=== PATIENT | female | born 1995 | race Caucasian/White ===

== ENCOUNTER 2017-07-19 21:03 | Emergency (ER) | payer MEDICAID ==
[~2017-07-19] VITALS: Ht 154.9 cm; Wt 77.1 kg
[~2017-07-19 21:03] MED LIST: BACTRIM DS 8001 TAB PO; BACTROBAN2% TP; BACTROBAN23 TP; BENADRYL25 M1 PO; BIRTH CONTROL PO; CIPRO 500MG TA500 MG PO; CYCLOBENZ5 MG PO; LESSINA 28 0.021 TAB PO; LORTAB 5/500 501 TAB PO; MEDROL 4MG. DOSE4 MG PO; NAPROSYN500 M1 PO; ROBAXIN-750750 MG PO; SEPTRA DS 800 M1 TAB PO; SINGULAIR10 MG PO; VISTARIL50 MG PO; ZITHROMAX Z-PA250 M1 PO; ZOFRAN ODT4 MG PO
--- NOTE | 2017-07-19 21:22 | Emergency Room Report ---
History of Present Illness Time Seen by [id number] Presenting Problem in Triage Pt arrived:Walked Presenting Problem:CHASING DOG AND FELL IN ROAD.STATES HERE FOR R WRIST.ABLE TO MOVE FINGERS BUT STATES HURTS WITH MOVEMANT. 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 N Clinical Suspician of Infection? N Mental Status: 1 - Regular (Normal Baseline) Sepsis Risk:Low Sepsis Risk Have you (or family members/close friends) recently traveled outside the [place]? N If Yes, where/when: Have you had exposure to infectious disease within the past month? N TB? Other? Specify: Source patient, RN notes reviewed, family, old records Exam Limitations no limitations Comment pt with trip injury rt wrist and abrasion lt knee - pt with no other c/o Cardiac Chest Pain Chest pain indicative of cardiac No Timing/Duration this evening Severity moderate ALLERGIES Coded Allergies: Penicillins (Intermediate, I-HIVES 09/01/15) History Medical History General CAD? No Angina: No [place]: No Hypertension? No Hyperlipidemia? No CHF? No DVT? No PE? No COPD? No Asthma? Yes Anemia? No GERD? No Gastric ulcers? No GI Bleed? No Hernia? No Thyroid Problems? No Hypothyroidism? No CVA? No Seizures? No Diabetes? No Insulin Dependent: No Insulin Pump: No Home FSBS? No Renal Insuffiency? No End Stage Renal Disease? No UTI? No Stones? No BPH? No GB Disease: No Nephritic Syndrome? No Asplenia? No Hepatitis? No Sickle Cell Disease? No Arthritis? No Migraines? No Cataracts? No Glaucoma? No MRSA? Yes HIV? No TB? No Anxiety? No Depression? No Cancer? No More? 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 Respiratory denies cough, denies wheezing Cardiovascular denies chest pain, denies syncope Gastrointestinal denies abdominal pain, denies diarrhea, denies vomiting Genitourinary denies: dysuria, frequency, hesitancy, hematuria. Musculoskeletal see HPI, denies back pain, joint pain, joint swelling, denies neck pain Skin see HPI, denies rash, other Psychiatric/Neurological denies headache, denies seizure Physical Exam Vital Signs Vital Signs Date Time Temp Pulse Resp B/P Pulse O2 O2 Flow FiO2 Ox Delivery Rate 07/19 2107 98.7 88 18 135/82 99 - WBC >12,000 or <4,000 or 10% bands? 2 or more SIRS Criteria Met? B/P:135/82 MAP:99 Creatinine >2.0? UA output<0.5ml/kg/hr for 2 hrs? Platelet count >100,000? Lactate >2.0mmol/1? INR >1.2 or PTT > than 60 sec? Evidence of Organ Dysfunction? Provider documented clinical suspician of infection? N Sepsis Criteria Count: 0 Sepsis Risk: Low Sepsis Risk General Appearance no apparent distress Eye Exam - bilateral eye PERRL, bilateral eye EOMI Ear, Nose, Throat normal ENT inspection Neck non-tender Respiratory Status No: respiratory distress. 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 No Results/Orders Orders Procedure Date/time Status URINE 07/19 2154 Complete WRIST-3 VIEWS-RT 07/19 2122 Active XRAY/CT/US XRAY/CT/US XRAY wrist XR interpretation by reviewed by me Xray Results abnormal (ulnar styloid) Departure Departure Time of Disposition 2147 Disposition DC Home or Self Care(routine) Clinical Impression Primary Impression: Fracture of right ulnar styloid Qualifiers: Encounter type: initial encounter Fracture type: closed Fracture alignment: nondisplaced Qualified Code: S52.614A - Nondisplaced fracture of right ulna styloid process, initial encounter for closed fracture Secondary Impressions: Abrasion Condition STABLE Patient Instructions DI for Wrist Fracture Additional Instructions wear splint and see pcp for follow up Discharge Counseling Counseled pt/family regarding diagnosis, test results, medications/RX, follow up needs ED Critical Care Critical Care No at [id number]
--- NOTE | 2017-07-19 21:22 | Emergency Room Report ---
History of Present Illness Time Seen by [id number] Presenting Problem in Triage Pt arrived:Walked Presenting Problem:CHASING DOG AND FELL IN ROAD.STATES HERE FOR R WRIST.ABLE TO MOVE FINGERS BUT STATES HURTS WITH MOVEMANT. 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 N Clinical Suspician of Infection? N Mental Status: 1 - Regular (Normal Baseline) Sepsis Risk:Low Sepsis Risk Have you (or family members/close friends) recently traveled outside the [place]? N If Yes, where/when: Have you had exposure to infectious disease within the past month? N TB? Other? Specify: Source patient, RN notes reviewed, family, old records Exam Limitations no limitations Comment pt with trip injury rt wrist and abrasion lt knee - pt with no other c/o Cardiac Chest Pain Chest pain indicative of cardiac No Timing/Duration this evening Severity moderate ALLERGIES Coded Allergies: Penicillins (Intermediate, I-HIVES 09/01/15) History Medical History General CAD? No Angina: No [place]: No Hypertension? No Hyperlipidemia? No CHF? No DVT? No PE? No COPD? No Asthma? Yes Anemia? No GERD? No Gastric ulcers? No GI Bleed? No Hernia? No Thyroid Problems? No Hypothyroidism? No CVA? No Seizures? No Diabetes? No Insulin Dependent: No Insulin Pump: No Home FSBS? No Renal Insuffiency? No End Stage Renal Disease? No UTI? No Stones? No BPH? No GB Disease: No Nephritic Syndrome? No Asplenia? No Hepatitis? No Sickle Cell Disease? No Arthritis? No Migraines? No Cataracts? No Glaucoma? No MRSA? Yes HIV? No TB? No Anxiety? No Depression? No Cancer? No More? 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 Respiratory denies cough, denies wheezing Cardiovascular denies chest pain, denies syncope Gastrointestinal denies abdominal pain, denies diarrhea, denies vomiting Genitourinary denies: dysuria, frequency, hesitancy, hematuria. Musculoskeletal see HPI, denies back pain, joint pain, joint swelling, denies neck pain Skin see HPI, denies rash, other Psychiatric/Neurological denies headache, denies seizure Physical Exam Vital Signs Vital Signs Date Time Temp Pulse Resp B/P Pulse O2 O2 Flow FiO2 Ox Delivery Rate 07/19 2107 98.7 88 18 135/82 99 - WBC >12,000 or <4,000 or 10% bands? 2 or more SIRS Criteria Met? B/P:135/82 MAP:99 Creatinine >2.0? UA output<0.5ml/kg/hr for 2 hrs? Platelet count >100,000? Lactate >2.0mmol/1? INR >1.2 or PTT > than 60 sec? Evidence of Organ Dysfunction? Provider documented clinical suspician of infection? N Sepsis Criteria Count: 0 Sepsis Risk: Low Sepsis Risk General Appearance no apparent distress Eye Exam - bilateral eye PERRL, bilateral eye EOMI Ear, Nose, Throat normal ENT inspection Neck non-tender Respiratory Status No: respiratory distress. 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 No Results/Orders Orders Procedure Date/time Status URINE 07/19 2154 Complete WRIST-3 VIEWS-RT 07/19 2122 Active XRAY/CT/US XRAY/CT/US XRAY wrist XR interpretation by reviewed by me Xray Results abnormal (ulnar styloid) Departure Departure Time of Disposition 2147 Disposition DC Home or Self Care(routine) Clinical Impression Primary Impression: Fracture of right ulnar styloid Qualifiers: Encounter type: initial encounter Fracture type: closed Fracture alignment: nondisplaced Qualified Code: S52.614A - Nondisplaced fracture of right ulna styloid process, initial encounter for closed fracture Secondary Impressions: Abrasion Condition STABLE Patient Instructions DI for Wrist Fracture Additional Instructions wear splint and see pcp for follow up Discharge Counseling Counseled pt/family regarding diagnosis, test results, medications/RX, follow up needs ED Critical Care Critical Care No at [id number]
[2017-07-19 22:23] VITALS: BP 113/71
--- OUTSIDE RECORDS SUMMARY | 2017-07-20 06:27 | External Medical Summary Rpt | CCD ---
Author Author , [facility] Organization [facility] Address Unknown Phone Care Team Providers Care Cat Operator Name Role Phone A Mk ESCOTO MD PSC, Elaine Unavailable Unavailable Mk ESCOTO MD PSC BEAVEN, BEAVEN Unavailable Unavailable QUINTERO ALL, QUINTERO ALL Unavailable Unavailable VIERA JR, J V, Unavailable Unavailable VIERA JR, J V AVENDANO SHERRELL, AVENDANO Unavailable Unavailable SHERRELL [facility], Unavailable Unavailable [facility] CARMEN VIELKA, Unavailable Unavailable CARMEN VIELKA CARMEN VIELKA, Unavailable Unavailable CARMEN VIELKA TIAN MAT, TIAN Unavailable Unavailable MAT [facility] [place]available [place], [facility] [place] [facility] [place] [facility] [place] [facility], RASHEEDA Unavailable Unavailable SHA [facility], RAS[facility] Unavailable Unavailable [facility] Unavailable Unavailable [facility], [facility] Unavailable Unavailable ISAAC DORINA, ISAAC Unavailable Unavailable DORINA [facility], [facility] Un[facility], [facility] Unavailable Unavailable [facility], [facility] HILARY RHO, HILARY Unavailable Unavailable RHO [facility], Unavailable Unavailable [facility] Un[facility], [facility] Unavailable [facility]available [facility]PITAL P, [facility] P RODRIGUEZ MALA, RODRIGUEZ MALA Unavailable Unavailable RODRIGUEZ MALA, RODRIGUEZ MALA Unavailable Unavailable [facility], Unavailable Unavailable [facility] KILPELA JEA, KILPELA Unavailable Unavailable JEA KILPELA JEA, KILPELA Unavailable Unavailable JEA KOSTELIC, KOSTELIC Unavailable Unavailable [facility], Unavailable Unavailable [facility], Unavailable Unavailable [facility] ARTIE PETER, Unavailable Unavailable ARTIE PETER ARTIE PETER, Unavailable Unavailable ARTIE PETER MECCARIELLO, Unavailable Unavailable MECCARIELLO EMILIE RODRIGUEZ, Unavailable Unavailable EMILIE RODRIGUEZ [facility] Unavailable Unavailable [facility] Unavailable Unavailable O' REEL SUMAYA, O' REEL Unavailable Unavailable SUMAYA [facility], [facility], [facility] Unavailable Unavailable [facility] Unavailable Unavailable SCIFRES ANG, SCIFRES Unavailable Unavailable ANG SCIFRES ANG, SCIFRES Unavailable Unavailable ANG JIMMIE ALBRIGHT, Unavailable Unavailable JIMMIE ALBRIGHT JOHN T, SMALL, Unavailable Unavailable [facility] Un[facility], [facility] Unavailable Unavailable EM[facility]ENCY SERVI, [facility] Unavailable Unavailable H[facility]PITALS, [facility] Unavailable Unavailable DEPT [facility] Unavailable Unavailable DEPT [facility], [facility] YUMI MIMS, Unavailable Unavailable YUMI MIMS, JEVON Henry Unavailable Unavailable Elaine ESCOTO, JEVON, Unavailable Unavailable Elaine C Purpose Continuity of Care Document - 10-30-2007 through 2016 Problems Code Diagnosis DOS Provider Status J45.909 UNSPECIFIED 04-03-2017 ASTHMA, UNCOMPLICAT ED L55.9 SUNBURN, 04-03-2017 UNSPECIFIED R22.0 LOCALIZED 04-03-2017 SWELLING, MASS AND LUMP, HEAD R60.0 LOCALIZED 04-03-2017 EDEMA Z88.0 ALLERGY 04-03-2017 STATUS TO PENIC[place] [id number] UNSPECIFIED 03-25-2017 [facility] UNCOMPLICAT HOSPITA ED L559 SUNBURN 03-25-2017 [facility] UNSPECIFIED N EMERGENCY SERVI R220 LOCALIZED 03-25-2017 [facility] SWELLING N EMERGENCY MASS AND SERVI LUMP HEAD R600 LOCALIZED 03-25-2017 [facility]DEMA COMMUNTIY HOSPITA Z880 ALLERGY 03-25-2017 [facility] STATUS TO COMMUNTIY [facility] HOSPITA R05 COUGH 02-24-2017 R06.02 SHORTNESS 02-24-2017 OF BREATH R09.1 PLEURISY 02-24-2017 R05 COUGH 02-19-2017 [facility] CHEST PAIN 02-19-2017 [facility]PECIFIED [facility] [place] [facility] R091 PLEURISY 02-19-2017 [facility] N EMERGENCY PHYS R509 FEVER 02-19-2017 [facility] [place] U[facility]PEC[facility]IED [facility]OLOGY E22.1 HYPERPROLAC 01-02-2017 [place] E221 HYPERPROLAC 12-31-2016 [facility] [place] ON LICENSE OF [facility] HOSPITA N926 IRREGULAR 12-19-2016 [facility] UNSPECIFIED R1031 RIGHT LOWER 12-13-2016 [facility] H[facility] Z3202 ENCOUNTER 12-13-2016 [facility] TEST RESULT NEGATIVE Z789 OTHER 12-13-2016 [place] [facility] STATUS [id number] PAIN IN 03-22-2016 [facility] LEFT WRIST N EMERGENCY PHYS Z720 TOBACCO USE 03-22-2016 [facility] HOSPITA H5213 MYOPIA 11-28-2015 RODRIGUEZ MALA BILATERAL [id number] PAIN IN 11-06-2015 [facility] [place] RIGHT HAND RADIOLOG[facility] [id number] CONTUSION 11-06-2015 [facility] RT MIDDLE N EMERGENCY FINGER W/O SERV DAMAGE NAIL INIT K562ULD STRIKING 11-06-2015 [facility] AGAINST/STR N EMERGENCY UCK OTH SERV OBJECTS INITIAL ENC R21 RASH AND 10-04-2015 [facility] OTHER [facility]YSICIANS, NONSPECIFIC PLLC SKIN ERUPTION J069 ACUTE UPPER 09-01-2015 [facility] HOSP RESPIRATORY INC INFECTION UNSPECIFIED R0989 OTH SPEC SX 09-01-2015 [place] & SIGNS MEDICAL INVLV THE IMAGING ASS CIRC & RESP SYS R1110 VOMITING 09-01-2015 [facility]PEC[facility] MEDICAL IMAGING ASS 83408 ASTHMA, 12-19-2014 [place]PEC[facility]IED [facility] , INC UNSPECIFIED STATUS 90522 SPRAIN AND 12-19-2014 [facility] P GEAL OF HAND 9595 INJURY 12-19-2014 [place] OTHER AND MEDICAL UNSPECIFIED IMAGING ASS FINGER E8494 PLACE [facility] 12-19-2014 [facility] RECREATION AND SPORT E9170 STRIKE 12-19-2014 [facility] P SPORTS W/O SUBSQT FALL V140 PERSONAL 12-19-2014 [facility] HISTORY OF [facility] ALLERGY TO [facility] P PENICILLIN 6264 IRREGULAR 12-06-2014 [facility] MENSTRUAL PHYSICIANS CYCLE GROUP V2509 OTH GENERAL 12-06-2014 [facility] PHYSIC[facility]ANS CNSL&ADVICE GROUP CONTRACEPT MANAGEMENT V2549 SURVEILLANC 12-06-2014 [facility] E OT PREV PHYSICIANS PRSC GROUP CONTRACEPT METHOD 1110 PITYRIASIS 10-11-2014 A Mk SINCLAIR MD PSC 684 IMPETIGO 10-11-2014 A Mk ESCOTO MD PSC V259 UNSPECIFIED 09-21-2014 [facility] PHYSICIANS CONTRACEPTI GROUP VE MANAGEMENT 7840 HEADACHE 06-29-2014 [facility] N EMERGENCY PHYS 5758 OTHER 01-03-2014 CAR[facility] SPECIFIED VIELKA DISORDER OF GALLBLADDER 41658 ABDOMINAL 01-03-2014 [facility] PAIN RIGHT MEM [facility]OS[facility] UPPER INC QUADRANT 5589 OTH&UNSPEC 12-30-2013 [facility] VIRGIINA NONINFECTIO US GASTROENTER ITIS&COLITI S 5699 UNSPECIFIED 12-30-2013 CARMEN DISORDER VIELKA OF INTESTINE 5779 UNSPECIFIED 12-30-2013 CARMEN DISEASE OF VIELKA PANCREAS 6202 OTHER AND 12-30-2013 [facility]MEN UNSPECIFIED VIELKA OVARIAN CYST 28082 ABDOMINAL 12-30-2013 CARMEN PAIN, VIELKA UNSPECIFIED SITE 64079 OTHER 12-13-2013 [facility] SPECIFIED TMJ DISORDERS V2501 GENERAL 11-16-2013 [facility] PRESCRIPT[facility] DEPT N ORAL NESSA CONTRACEPTS V2689 OTHER 11-16-2013 [facility] SPECIFIED DISTRICT PROCREATIVE [facility] DEPT MANAGEMENT NESSA 4660 ACUTE 12-01-2012 [facility] BRONCHITIS 96377 ACUTE 12-01-2012 [place] BRONCHOSPAS M 7264 ENTHESOPATH 09-18-2012 [place] Y OF WRIST AND CARPUS 4619 ACUTE 08-21-2012 KILPELA JEA SINUSITIS, UNSPECIFIED V741 SCREENING 06-23-2012 [facility] EXAMINATION HIGH FOR SCHOOL HEAL PULMONARY TUBERCULOSI S 2382 NEOPLASM OF 04-14-2012 [facility] BEHAVIOR OF INC SKIN 95106 GANGLION OF 04-14-2012 [place] TENDON SHEATH 7822 LOCALIZED 04-14-2012 CARMEN SUPERFICIAL VIELKA SWELLING MASS OR LUMP 19572 GENERALIZED 02-13-2012 [place] PAIN [facility] 05443 UNSPECIFIED 02-13-2012 [place] SITE OF ANKLE SPRAIN AND STRAIN 63778 SPRAIN AND 02-13-2012 [place] STRAIN OF UNSPECIFIED SITE OF FOOT 9599 INJURY 02-13-2012 [place] OTHER AND MEDICAL UNSPECIFIED IMAGING ASS UNSPECIFIED SITE 7821 RASH AND 11-28-2011 [facility] OTHER NONSPECIFIC SKIN ERUPTION 7847 EPISTAXIS 11-28-2011 [facility] 4659 ACUTE URIS 11-11-2011 [place] OF UNSPECIFIED SITE V720 EXAMINATION 10-03-2011 SCIFRES ANG OF EYES AND VISION 7862 COUGH 08-21-2011 [facility] 5110 PLEURISY 08-20-2011 [facility] WITHOUT [facility] MENTION INC EFFUS/CURRE NT TB 4778 ALLERGIC 05-08-2011 ARTIE RHINITIS PETER DUE TO OTHER ALLERGEN 81037 EXTRINSIC 05-08-2011 [facility] ASTHMA, MEM HOS[facility] UNSPECIFIED INC 6931 DERMATITIS 05-08-2011 [facility] DUE TO FOOD MEM HOS[facility] TAKEN INC INTERNALLY 4770 ALLERGIC 05-07-2011 ARTIE RHINITIS PETER DUE TO POLLEN 4772 ALLERGIC 05-07-2011 ARTIE RHINITIS PETER DUE TO ANIMAL HAIR AND DANDER 4780 HYPERTROPHY 05-07-2011 ARTIE OF NASAL PETER TURBINATES V727 DIAGNOSTIC 05-07-2011 ARTIE SKIN AND PETER SENSITIZATI ON TESTS 2449 UNSPECIFIED 03-27-2011 [facility] HYPOTHYROID ISM 15562 OTHER SIGN 03-27-2011 A Mk ESCOTO AND SYMPTOM PSC IN BREAST 7831 ABNORMAL 03-27-2011 [facility] [place] INC 6929 CONTACT 03-12-2011 A Mk ESCOTO DERMATITIS& PSC OTHER ECZEMA DUE UNSPEC CAUSE 50847 CONTACT AND 01-19-2010 VIERA ALLERGIC JR, J V DERMATITIS OF EYELID 462 ACUTE 01-16-2010 VIERA PHARYNGITIS JR, J V 4720 CHRONIC 01-16-2010 VIERA RHINITIS JR, J V 4871 INFLUENZA 07-28-2009 VIERA WITH OTHER JR, J V RESPIRATORY MANIFESTATI ONS 12878 FEVER 07-28-2009 VIERA UNSPECIFIED JR, J V 7841 THROAT PAIN 07-25-2009 [facility] 4739 UNSPECIFIED 07-05-2009 VIERA SINUSITIS JR, J V 3670 HYPERMETROP 06-09-2009 RAFAEL IA VISION 34962 OTHER 05-09-2009 VIERA ABNORMAL JR, J V GLUCOSE 6111 HYPERTROPHY 04-29-2009 [facility] OF BREAST Aravind RAMIREZ V V163 FAMILY 04-29-2009 [facility] HISTORY OF Aravind RAMIREZ V MALIGNANT NEOPLASM OF BREAST 490 BRONCHITIS 03-01-2009 [facility] NOT Aravind RAMIREZ V SPECIFIED ACUTE OR CHRONIC 8921 OPEN WOUND 08-14-2008 [place] OF FOOT MEDICAL EXCEPT TOE [facility] COMPLICATED 8931 OPEN WOUND 08-14-2008 MAS OF TOE, ZALORA E8490 PLACE OF 06-27-2008 [place] OCCURRENCE, [facility]ICAL [facility] E927 OVEREXERTIO 06-27-2008 [place] N&STRENUOUS MEDICAL &REPETITIVE [facility] MVMNTS/LOAD S V700 ROUTINE 05-09-2008 [facility] GENERAL Aravind RAMIREZ V MEDICAL EXAM@HEALTH CARE FACL 7881 DYSURIA 10-30-2007 Aravind VIERA JR, V Allergies, Adverse Reactions, Alerts Clinical Alert Notifications Alert Asthma: history of ED visit in the last 365 days Asthma: no influenza vaccine in the last 365 days Asthma: non-ICS non-compliance with ED/hospitalization Medications Na ND Rx Da Fi Fi Am Da Di Ph RX Ph St me C No te ll ll ou ys ag ar # ys at rm s nt no ma ic us Or Da si cy ia de te s n re d ET 51 06 07 14 7 00 CV Ac OD 67 -2 -2 .0 00 S ti OL 24 0- 1- 00 01 PH ve AC 01 20 20 36 AR 80 17 17 07 MA 40 1 78 CY 0 MG #0 23 TA 32 BL ET GEORGE 00 06 07 3. 21 00 CV Ac LA 37 -2 -2 00 00 S ti NE 83 0- 1- 0 01 PH ve 34 20 20 32 AR PA 05 17 17 23 MA TC 3 00 CY H #0 23 32 AL 00 05 06 10 5 00 CV Ac ED 14 -1 -1 .0 00 S ti NI 39 7- 6- 00 01 PH ve SO 73 20 20 34 AR NE 80 17 17 71 MA 5 88 CY 20 #0 MG 23 32 TA BL ET CO 58 05 06 12 2 00 CV Ac DE 65 -1 -1 0. 00 S ti IN 70 7- 6- 00 01 PH ve E- 50 20 20 0 34 AR 01 17 17 71 MA AI 6 89 CY FE N #0 10 23 -1 32 00 MG /5 ML MO 00 05 06 30 30 00 CV Ac NT 09 -1 -1 .0 00 S ti EL 37 7- 6- 00 01 PH ve UK 42 20 20 34 AR 69 17 17 71 MA T 8 90 CY SO D #0 10 23 32 MG TA BL ET VE 00 05 06 18 30 00 CV Ac NT 17 -1 -1 .0 00 S ti OL 30 7- 6- 00 01 PH ve IN 68 20 20 34 AR 22 17 17 71 MA HF 0 91 CY A 90 #0 23 MC 32 G IN CALDWELL LE R GEORGE 00 03 04 3. 21 00 CV Ac LA 37 -2 -2 00 00 S ti NE 83 3- 8- 0 01 PH ve 34 20 20 32 AR PA 05 17 17 23 MA TC 3 00 CY H #0 23 32 PE 00 08 09 1 60 1 EA 23 MA Ac RM 47 -0 -[address] 51 SH ti ET 20 2- 6- 00 SI 04 BU ve HR 24 20 20 DE RN IN 26 11 11 0 PH AM 5% AR Y MA B CR CY EA M OF CY NT HI AN A TR 00 08 08 6 80 3 EA 23 MA Ac IA 16 -0 -[address] 51 SH ti MC 80 2- 3- 00 SI 11 BU ve IN 00 20 20 DE RN OL 68 11 11 ON 0 PH AM E AR Y 0. MA B 1% CY OI OF NT ME CY NT NT HI AN A CE 45 08 08 6 30 30 EA 23 MA Ac TI 80 -0 -[address] 51 SH ti RI 20 2- 3- 00 SI 10 BU ve ZI 91 20 20 DE RN NE 98 11 11 7 PH AM HC AR Y L MA B 10 CY MG OF TA CY BL NT ET HI AN A 00 08 08 6 30 30 EA 23 MA Ac 00 -0 -[address] 51 SH ti 60 2- 3- 00 SI 09 BU ve 11 20 20 DE RN 73 11 11 1 PH AM AR Y MA B CY OF CY NT HI AN A 59 08 08 3 8. 20 EA 23 MA Ac 31 -0 -[address] 51 SH ti 00 2- 3- 0 SI 08 BU ve 57 20 20 DE RN 92 11 11 0 PH AM AR Y MA B CY OF CY NT HI AN A 00 08 08 6 0. 30 EA 23 MA Ac MA 08 -0 -[address] 51 SH ti NE 51 2- 3- 5 SI 07 BU ve X 46 20 20 DE RN TW 10 11 11 IS 2 PH AM TH AR Y AL MA B ER CY 11 OF 0 MC CY G NT #3 HI 0 AN A 00 08 08 6 30 30 EA 23 CO Ac 00 -0 -[address] 51 MM ti 60 2- 3- 00 SI 09 UN ve 11 20 20 DE IT 73 11 11 Y 1 PH AL AR LE MA RG CY Y & OF TH CY MA NT HI PS AN C A 59 08 08 3 8. 20 EA 23 CO Ac 31 -0 -[address] 51 MM ti 00 2- 3- 0 SI 08 UN ve 57 20 20 DE IT 92 11 11 Y 0 PH AL AR LE MA RG CY Y & OF TH CY MA NT HI PS AN C A PE 00 08 08 1 60 1 EA 23 MA Ac RM 47 -0 -[address] 51 SH ti ET 20 2- 2- 00 SI 04 BU ve HR 24 20 20 DE RN IN 26 11 11 0 PH AM 5% AR Y MA B CR CY EA M OF CY NT HI AN A ME 00 06 06 0 21 6 EA 22 MO Ac TH 78 -0 -[address] 83 SE ti YL 15 7- 7- 00 SI 65 S ve AL [address] ED 20 11 11 EP NI 7 PH HE SO AR N LO MA A NE CY 4 OF MG CY DO NT SE HI PK AN A CE 45 06 06 5 30 30 EA 22 MO Ac TI 80 -0 -[address] 83 SE ti RI 20 7- 7- 00 SI 64 S ve ZI [address] NE 98 11 11 EP 7 PH HE HC AR N L MA A 10 CY MG OF TA CY BL NT ET HI AN A 00 04 04 1 30 30 EA 17 CA Ac 00 -1 -[address] ti 60 3- 3- 00 SI 59 IL ve 11 20 20 DE LO 73 10 10 1 PH JR AR J MA V CY OF CY NT HI AN A VE 00 04 04 1 18 22 EA 17 CA Ac NT 17 -1 -[address] ti OL 30 3- 3- 00 SI 58 IL ve IN 68 20 20 DE LO 22 10 10 HF 0 PH JR A AR J 90 MA V CY MC G OF IN CALDWELL CY LE NT R HI AN A ME 00 12 12 00 21 6 EA 15 SO Ac TH 78 -1 -[address] 61 KA ti YL 15 7- 1- 00 SI 93 N ve AL 02 20 20 DE BA ED 20 09 09 BA NI 7 PH TU SO AR ND LO MA E NE CY O 4 OF MG CY NT DO HI SE AN PK A BA 00 12 12 00 12 3 EA 15 SO Ac NO 90 -1 -[address] 61 KA ti PH 45 7- 1- 00 SI 94 N ve EN 30 20 20 DE BA 66 09 09 BA 25 0 PH TU AR ND MG MA E CY O CA PS OF UL CY E NT HI AN A 66 10 11 00 90 5 EA 14 CA Ac 99 -2 -[address] ti 20 3- 5- 00 SI 54 IL ve 22 20 20 DE LO 00 09 09 4 PH JR AR J MA V CY OF CY NT HI AN A 00 09 10 00 30 30 EA 14 CA Ac 09 -3 -[address] ti 51 0- 8- 00 SI 50 IL ve 20 20 20 DE LO 00 09 09 6 PH JR AR J MA V CY OF CY NT HI AN A NA 00 08 08 00 17 17 EA 13 CA Ac SO 08 -0 -[address] ti NE 51 4- 3- 00 SI 87 IL ve X 28 20 20 DE LO 50 80 09 09 1 PH JR MC AR J G MA V NA CY SA L OF SP CY RA NT Y HI AN A LE 00 08 08 00 30 30 EA 13 CA Ac VO 37 -0 -[address] ti TH 81 4- 3- 00 SI 86 IL ve YR 80 20 20 DE LO OX 30 09 09 IN 1 PH JR E AR J 50 MA V CY MC G OF TA CY BL NT ET HI AN A 00 05 06 00 3. 3 EA 12 CA Ac 09 -2 -[address] ti 37 7- 4- 0 SI 86 IL ve 16 20 20 DE LO 93 09 09 3 PH JR AR J MA V CY OF CY NT HI AN A 00 05 06 00 30 30 EA 12 CA Ac 00 -2 -[address] ti 60 7- 4- 00 SI 85 IL ve 11 20 20 DE LO 73 09 09 1 PH JR AR J MA V CY OF CY NT HI AN A 00 02 02 00 3. 3 EA 11 CA Ac 09 -1 -[address] ti 37 0- 6- 0 SI 54 IL ve 16 20 20 DE LO 93 09 09 3 PH JR AR J MA V CY OF CY NT HI AN A 66 02 02 00 90 5 EA 11 CA Ac 99 -1 -[address] ti 20 0- 6- 00 SI 56 IL ve 22 20 20 DE LO 00 09 09 4 PH JR AR J MA V CY OF CY NT HI AN A 59 02 02 00 8. 17 EA 11 CA Ac 31 -1 -[address] ti 00 0- 6- 0 SI 57 IL ve 57 20 20 DE LO 92 09 09 0 PH JR AR J MA V CY OF CY NT HI AN A 00 11 11 00 10 2 EA 10 WI Ac 59 -1 -[address] 20 CK ti 10 0- 0- 00 SI 37 ER ve 34 20 20 DE 90 08 08 JE 1 PH FF AR RE MA Y CY OF CY NT HI AN A 60 11 11 00 6. 3 EA 10 WI Ac 50 -1 -[address] 20 CK ti 51 0- 0- 0 SI 36 ER ve 30 20 20 DE 90 08 08 JE 1 PH FF AR RE MA Y CY OF CY NT HI AN A NA 00 09 09 00 17 17 EA 99 No Ac SO 08 -0 -[address] 29 t ti NE 51 2- 1- 00 SI 94 Av ve X 28 20 20 DE ai 50 80 08 08 la 1 PH bl MC AR e G MA NA CY SA L OF SP CY RA NT Y HI AN A 00 09 09 00 30 30 EA 99 No Ac 00 -0 -[address] 29 t ti 60 2- 1- 00 SI 93 Av ve 11 20 20 DE ai 73 08 08 la 1 PH bl AR e MA CY OF CY NT HI AN A AZ 00 06 07 00 6. 5 EA 98 No Ac IT 09 -1 -[address] 38 t ti HR 37 6- 3- 0 SI 79 Av ve OM 14 20 20 DE ai YC 61 08 08 la IN 8 PH bl AR e 25 MA 0 CY MG OF TA CY BL NT ET HI AN A PERSAUD 53 05 06 00 20 10 EA 98 No Ac LF 48 -3 -[address] 19 t ti AM 90 1- 2- 00 SI 66 Av ve ET 14 20 20 DE ai HO 60 08 08 la XA 1 PH bl ZO AR e LE MA -T CY MP OF DS CY NT TA HI BL AN ET A ME 00 05 06 00 21 6 EA 98 No Ac TH 78 -3 -[address] 19 t ti YL 15 1- 2- 00 SI 65 Av ve AL 02 20 20 DE ai ED 20 08 08 la NI 7 PH bl SO AR e LO MA NE CY 4 OF MG CY NT DO HI SE AN PK A 66 03 04 00 11 6 EA 97 No Ac 99 -1 -[address] 26 t ti 20 8- 7- 00 SI 43 Av ve 22 20 20 0 DE ai 00 08 08 la 4 PH bl AR e MA CY OF CY NT HI AN A 00 01 03 00 40 10 EA 96 No Ac 07 -3 -[address] 59 t ti 46 1- 6- 00 SI 22 Av ve 30 20 20 DE ai 41 08 08 la 3 PH bl AR e MA CY OF CY NT HI AN A Results Labs Lab Lab Date Result Refere Interp Status Commen Order Detail nces retati t Range on Prolactin SerPl 3rd IS-mCnc (12-19-2016 08:56) Prolact 29.6 4.4-23. complet in 017 ng/mL 3 ed SerPl 08:56 3rd IS-mCnc T4 Free SerPl-mCnc (12-13-2016 11:25) T4 Free 1.1 0.8-1.7 complet 017 ng/dL ed SerPl-m 11:25 Cnc HGC Intact+B SerPl-aCnc (12-13-2016 11:25) HGC <1 <5 complet Intact+ 017 mIU/mL ed B 11:25 SerPl-a Cnc TSH SerPl DL<=0.005 mIU/L-aCnc (12-13-2016 11:25) TSH 4.13 0.4-4.2 complet SerPl 017 uIU/mL ed DL<=0.0 11:25 05 mIU/L-a Cnc Insulin SerPl-aCnc (12-13-2016 11:25) Insulin 10.3 3.0-16. complet 017 uU/mL 0 ed SerPl-a 11:25 Cnc Hgb A1c MFr Bld (12-13-2016 11:25) Hgb A1c 5.4 % 4.7-6.0 complet MFr 017 ed Bld 11:25 Prolactin SerPl 3rd IS-mCnc (12-13-2016 11:25) Prolact 31.7 4.4-23. complet in 017 ng/mL 3 ed SerPl 11:25 3rd IS-mCnc FSH SerPl IRP2-aCnc (12-13-2016 11:25) FSH 6.8 complet SerPl 017 mIU/mL ed IRP2-aC 11:25 nc Testost SerPl-mCnc (12-13-2016 11:25) Testost 26 complet 017 ng/dL ed SerPl-m 11:25 Cnc Procedures Procedure DOS Code Location Performer Comment INJ [id number] [facility] METHYLPRD 7 N N NISOLONE COMMUNTIY COMMUNTIY SODIUM HOSPITA HOSPITA SUCCNAT TO 125 MG RADIOLOGI 41283 [facility] C 7 N N EXAMINATI COMMUNTIY COMMUNTIY ON CHEST HOSPITA HOSPITA SINGLE VIEW FRONTAL GROUND A0425 [facility] MILEAGE 7 KYLE WRIGHT PER CO EMS CO EMS STATUTE MILE AMB A0427 [facility] SERVICE 7 KYLE WRIGHT ALS CO EMS CO EMS EMERGENCY TRANSPORT LEVEL 1 THER 33752 [facility] PROPH/DX 7 N N NJX IV COMMUNTIY COMMUNTIY PUSH HOSPITA HOSPITA SINGLE/1S T SBST/DRUG INJECTION A9579 [facility] 7 N N GADOLINIU COMMUNTIY COMMUNTIY M BASED HOSPITA HOSPITA MR CONTRAST NOS ML MRI BRAIN 12964 [facility] [place] [facility] BRAIN 7 RADIOLOGY STEM W/O W/[place] [address] [facility] PROLACTIN 7 [facility] [place] [address] [facility] PROLACTIN 7 [facility] [place] [address] [facility] TESTOSTER 7 HEALTHCAR HEALTHCAR ONE TOTAL E E HOSPITALS HOSPITALS DEHYDROEP 56606 [facility] IANDROSTE 7 HEALTHCAR HEALTHCAR MADONNA-SULF E E ATE [facility] HEMOGLOBI 02868 [facility] N 7 HEALTHCAR HEALTHCAR GLYCOSYLA E E LILY A1C [facility] [address] [facility] HYDROXYPR 7 [facility]ALTHCAR HEALTHCAR OGESTERON E E E 17-D HOSPITALS HOSPITALS BLOOD 62840 [facility] COUNT 7 [facility]ALTH[facility] HEALTHCAR COMPLETE E E AUTOMATED HOSPITALS HOSPITALS URINE 82898 [facility] 7 MEDICAL TEST SERV VISUAL FOUNDATIO COLOR N CMPRSN METHS GONADOTRO 56420 [facility] PIN 7 HEALTHCAR HEALTHCAR FOLLICLE E E STIMULATI HOSPIT[place] [address] [facility] INSULIN 7 HEALTHCAR HEALTHCAR [place] [address] [facility] FREE 7 [facility]ALTH[facility]ALTH[facility] THYROXINE [place] [address] [facility] THYROID 7 HEALTHCAR HEALTHCAR STIMULATI E E NG HOSPITALS HOSPITALS HORMONE TSH GONADOTRO 65483 [facility] PIN 7 HEALTHCAR HEALTHCAR CHORIONIC E E HOSPITALS HOSPITALS QUANTITAT AGUSTIN PREDNISON J7512 [facility] E 6 N N IMMEDIATE COMMUNTIY COMMUNTIY HOSPITA HOSPITA RLSE/PRIETO CHWO RLSE ORAL 1 MG FRAMES V2020 [facility] PURCHASES 6 1 VISN V2103 [facility] PLANO 6 TO+/-4.00 D SPHER 0.12-2.00 D CYL EA LENS V2784 [facility] POLYCARBO 6 ASHIA OR EQUAL ANY INDEX PER LENS SCRATCH V2760 [facility] RESISTANT 6 COATING PER LENS FITTING 68574 [facility] SPECTACLE 6 S XCPT APHAKIA MONOFOCAL SPHERE V2100 [facility] SINGLE 6 VISION PLANO +/- 4.00 PER LENS SCRATCH V2760 [facility] MALA RESISTANT 6 COATING PER LENS FITTING 83669 [facility] MALA SPECTACLE 6 S XCPT APHAKIA MONOFOCAL FRAMES V2020 [facility] PURCHASES 6 LENS V2784 [facility] POLYCARBO 6 ASHIA OR EQUAL ANY INDEX PER LENS OPHTH 08892 [facility] 6 XM&EVAL COMPRHNSV ESTAB PT 1/> RADEX 54115 [facility] [place] [facility] HAND 6 RADIOLOGY RHO MINIMUM 3 VIEWS APPLICATI 21917 [facility] ON FINGER 6 N N SPLINT COMMUNTIY COMMUNTIY STATIC HOSPITA HOSPITA RADIOLOGI 18873 [place] [facility] ALL C EXAM 5 MEDICAL CHEST 2 IMAGING VIEWS ASS FRONTAL&L ATERAL IAADI 55583 [facility] INFLUENZA 5 [facility] B VIRUS INC INC IAADI 97167 [facility] INFFLUENZ 5 [facility] A A VIRUS INC INC RADEX 73754 [facility] HAND 5 [facility] MINIMUM 3 [place] [address] CARMEN CARMEN ABDOMINAL 4 VIELKA VIELKA REAL TIME W/[place] [address] [facility] INFUSION 4 [facility] THERAPY/P INC INC ROPHYLAXI S /DX 1ST TO 1 HR THERAPEUT 89515 [facility] IC 4 [facility] INJECTION INC INC IV PUSH EACH NEW DRUG BLOOD 99678 [facility] COUNT 4 [facility] COMPLETE INC INC AUTO&AUTO DIFRNTL WBC URNLS DIP 05008 [facility] 4 [facility] STICK/TAB INC INC [place] [address] [facility] AMYLASE 4 [place] [address] [facility] LIPASE 4 [facility] INC INC COMPREHEN 92056 [facility] SIVE 4 [facility] METABOLIC INC INC PANEL INJECTION J2405 [facility] 4 [facility] ONDANSETR INC INC ON HCL PER 1 MG INJECTION J2405 [facility] 4 [facility] ONDANSETR INC INC ON HCL PER 1 MG COMPREHEN 05451 [facility] SIVE 4 [facility] METABOLIC INC INC PANEL LOCM Q9967 [facility] 300-399 4 [facility] MG/ML INC [place] [address] CARMEN CARMEN ABDOMEN & 4 VIELKA VIELKA PELVIS W/O CONTRAST MATERIAL IMMUNOASS 39317 [facility] AY NFCT 4 [facility] AGT ANTB INC INC QUAL/SEMI GLORIA 1 STEP THERAPEUT 71549 [facility] IC 4 [facility] [facility] PROPHYLAC INC INC TIC/DX INJECTION SUBQ/IM URNLS DIP 32352 [facility] MATT 4 [facility] STICK/TAB INC [place] [address] VERNELL MATT ABDOMEN & 4 [facility] PELVIS INC INC W/CONTRAS T MATERIAL BLOOD 24067 VERNELL MATT COUNT 4 [facility] COMPLETE INC INC AUTO&AUTO DIFRNTL WBC THERAPEUT 07550 VERNELL MATT IC 4 [facility] INJECTION INC [place] [address] VERNELL MATT INFUSION 4 [facility] THERAPY/P INC INC ROPHYLAXI S /DX 1ST TO 1 HR RADEX ABD 90640 VERNELL AQUINOON COMPL 4 [facility] AQT ABD INC INC W/S/E/D VIEWS 1 VIEW CH URINE 11654 VERNELL VERNELL 4 [facility] TEST INC INC VISUAL COLOR CMPRSN METHS THER 11496 VERNELL MATT PROPH/DX 4 [facility] NJX EA INC INC SEQL IV PUSH SBST/DRUG FAC 3D 54379 VERNELL MATT RENDERING 4 [facility] INC INC W/INTERP& POSTPROC DIFF WORK STATION IADNA 90874 [facility] DEPT [facility] DEPT TRACHOMAT NESSA NESSA IS AMPLIFIED PROBE TQ CONTRACEP A4267 [facility] TIVE [facility] SUPPLY [facility] DEPT [facility] DEPT CONDOM NESSA NESSA MALE EACH CONTRACEP S4993 [facility] TIVE [facility] [place] DEPT [facility] DEPT NESSA NESSA CONTROL URINE 83336 [facility] TEST [facility] DEPT [facility] DEPT VISUAL NESSA NESSA COLOR CMPRSN METHS IADNA 54568 [facility] NEISSERIA [facility] DEPT GONORRHOE NESSA NESSA AE AMPLIFIED PROBE TQ IAADIADOO 78005 [facility] 3 INFLUENZA RADEX 39409 VERNELL MATT WRIST 2 2 [facility] VIEWS INC INC RADEX 52405 VERNELL MTAT FOOT 2 [facility] COMPLETE INC INC MINIMUM 3 VIEWS FITTING 61443 SCIFRES SCIFRES SPECTACLE 1 ANG ANG S XCPT APHAKIA MONOFOCAL DETERMINA 56003 SCIFRES SCIFRES TION 1 ANG ANG REFRACTIV E STATE 1 VISN V2103 SCIFRES SCIFRES PLANO 1 ANG ANG TO+/-4.00 D SPHER 0.12-2.00 D CYL EA FRAMES V2020 SCIFRES SCIFRES PURCHASES 1 ANG ANG OPHTH 33951 SCIFRES SCIFRES MEDICAL 1 ANG ANG XM&EVAL COMPRHNSV ESTAB PT 1/> RADIOLOGI 37232 PSYCHIATRIC EXAM 1 MEDICAL VIELKA CHEST 2 IMAGING VIEWS ASS FRONTAL&L ATERAL URINE 83769 [facility] MATT 1 [facility] TEST INC INC VISUAL COLOR CMPRSN METHS CULTURE 98872 VERNELL MATT BACTERIAL 1 [facility] INC INC QUANTTATI VE COLONY COUNT URINE URNLS DIP 78184 [facility]NELL MATT 1 [facility] STICK/TAB INC INC LET REAGENT AUTO MICROSCOP Y BLOOD 45572 VERNELL MATT COUNT 1 [facility] COMPLETE INC INC AUTO&AUTO DIFRNTL WBC BASIC 91454 VERNELL MATT METABOLIC 1 [facility] PANEL INC INC CALCIUM TOTAL IAADI 99687 VERNELL MATT INFFLUENZ 1 [facility] A A VIRUS INC INC IAADI 81456 VERNELL MATT INFLUENZA 1 [facility] B VIRUS INC INC PREPJ& 40429 ARTIE ARTIE ALLERGEN 1 PETER PETER IMMUNOTHE RAPY 1/NATURAL RESOURCES INSTRUCTOR ANTIGEN ALLERGEN 89288 VERNELL MATT SPECIFIC 1 [facility] IGE INC INC GLORIA/SEMI GLORIA EA ALLERGEN BRNCDILAT 52734 ARTIE ARTIE RSPSE 1 [facility] GREEN SPMTRY PRE&POST- BRNCDILAT ADMN PERCUTANE 58034 ARTIE ARTIE OUS TESTS 1 [facility] GREEN W/ALLERGE MADELAINE EXTRACTS DEMO&/LAILA 01035 ARTIE ARTIE L OF PT 1 PET[facility] GREEN UTILIZ AERSL GEN/NEB/I NHLR/[place] [address] [facility] THYROID 1 [facility] [place] [address] [facility] PROLACTIN 1 [place] [address] VERNELL MATT STREPTOCO 9 [facility] [place] [address] VERNELL MATT THYROID 9 [facility] STIMULATI INC INC NG HORMONE TSH OPHTH 62631 RAFAEL JOSE RAMON, MEDICAL 9 VISION JIMMIE M XM&EVAL COMPRHNSV ESTAB PT 1/> FITTING 65625 RAFAEL JOSE RAMON, SPECTACLE 9 VISION JIMMIE M S XCPT APHAKIA MONOFOCAL SPHERE V2100 RAFAEL JOSE RAMON, SINGLE 9 VISION JIMMIE M VISION PLANO +/- 4.00 PER LENS FRAMES V2020 RAFAELMARIA ALEJANDRA ALBRIGHT, PURCHASES 9 [place] [address] VERNELL MATT THYROXINE 9 [facility] [place] [address] VERNELL MATT ESTROGENS 9 [facility] TOTAL INC INC GONADOTRO 95655 VERNELL MATT PIN 9 [facility] FOLLICLE INC INC STIMULATI NG HORMONE GLUCOSE 94423 VERNELL MATT QUANTITAT 9 [facility] AGUSTIN BLOOD INC INC XCPT REAGENT STRIP THYROID 52846 VERNELL MATT HORM 9 [facility] UPTK/THYR INC [place] [address] VERNELL VERNELL THYROID 9 [facility] STIMULATI [place] [address] VERNELL MATT STREPTOCO 9 [facility] CCUS INC INC GROUP A RADIOLOGI 70221 KALEB JENNIFER, C 8 MEDICAL EMILIE Boyer EXAMINATI IMAGING ON FOOT 2 ASSOCIATE VIEWS S AVULSION 51682 MAS FELICITA, NAIL 8 [facility] PARTIAL/C ON OMPLETE SIMPLE 1 INCI 8605 VERNELL MATT W/REMOVAL 8 [facility] INC INC FB/DEVICE FROM SKIN & SUBQ TISSUE RADEX 57534 KALEB JENNIFER, ANKLE 8 MEDICAL EMILIE Boyer COMPLETE IMAGING MINIMUM 3 ASSOCIATE VIEWS S IADNA 92927 Elaine TEIXEIRA STREPTOCO 8 JEVON Terrazas CCUS PSC GROUP A QUANTIFIC ATION URNLS DIP 34366 VERNELL MATT 8 [facility] STICK/TAB INC INC LET REAGENT AUTO MICROSCOP Y Encounters Encounter Start End Date Code Location Performer Type Date EMERGENCY 18702 [facility] 7 7 [facility] SERVI MODERATE [facility]VERITY HOSPITAL [facility] - 7 7 N [facility] 52989 [facility] 7 7 N DEPARTMEN COMMUNTIY T V[facility] LIMITED/M INOR PROB EMERGENCY 14316 [facility] 7 7 N DEPARTMEN COMMUNTIY T VISIT HOSPITA HIGH/URGE NT SEVERITY HOSPITAL [facility] - 7 7 N [facility] 7 N [facility] OUT[facility] E T HOSPITALS OFFICE 70574 [place] [facility] OUTPATI[facility] 7 7 MEDICAL T NEW 20 SERV MINUTES [facility] - 7 7 [facility] OUTPATIEN E T HOSPITALS [facility] - 6 6 N OUTPATIEN COMMUNTIY T HOSPITA EMERGENCY 18530 [facility] 6 6 N [facility] COMMUNTIY T [facility] MODERATE [facility]VERITY [facility]PITAL [facility] - 6 6 N OUTPATIEN COMMUNTIY T [facility] 89857 [facility] Stanley' FEDERICA 6 6 [place] SUMAYA [facility] EMERGENCY T VISIT SERV HIGH/URGE NT SEVERITY EMERGENCY 49199 VERNELL 5 5 [facility] VISIT LIMITED/M INOR [facility] VERNELL - 5 5 [facility] T EMERGENCY 23006 KYLE TIAN 5 5 PHYSICIAN MAT [facility], [facility] T VISIT MODERATE SEVERITY HOSPITAL VERNELL - 5 5 [facility] T EMERGENCY 87344 VER[facility]LL 5 5 [facility] T VISIT LOW/MODER SEVERITY HOSPITAL VERNELL Elizabeth 5 5 [facility] T EMERGENCY 84507 VERNELL GRAY 5 5 [facility] T VISIT P LOW/MODER SEVERITY OFFICE 69324 [facility] JUAN ALBERTO COLLIER 5 5 PHYSICIAN SHERRELL T VISIT S GROUP 15 MINUTES OFFICE 31388 Elaine [facility] 5 5 JEVON REYNA T VISIT PSC 15 MINUTES OFFICE 33199 [facility] JUAN ALBERTO COLLIER 4 4 PHYSICIAN SHERRELL T VISIT S GROUP 15 MINUTES EMERGENCY 74750 SOMMER MATT 4 4 [place] NJO [facility] EMERGENCY T VISIT PHYS HIGH/URGE NT SEVERITY HOSPITAL VERNELL - 4 4 [facility] OUTPATIEN INC T EMERGENCY 37540 ISAAC GRAY DEPT 4 4 [facility] VISIT HIGH SEVERITY& THREAT FUNCJ EMERGENCY 83434 VERNELL 4 4 [facility] DEPARTMEN INC T VISIT HIGH/URGE NT SEVERITY HOSPITAL VERNELL - 4 4 [facility] OUTPATIEN INC T HOSPITAL VERNELL - 4 4 [facility] OUTPATIEN INC T EMERGENCY 91125 [place] DEPT 4 4 VISIT HIGH SEVERITY& THREAT FUNCJ OFFICE 13590 FIELD AMB FIELD AMB OUTPATIEN 4 4 T VISIT 15 MINUTES PERIODIC 42408 [facility] DEPT HLTH DEPT PATIENT NESSA NESSA 18-39 YRS OFFICE 58502 [facility] [place] OUTPATIEN 3 3 T VISIT 15 MINUTES OFFICE 61923 [facility] [place] OUTPATIEN 2 2 T VISIT 15 MINUTES OFFICE 26214 KILPELA KILPELA OUTPATIEN 2 2 JEA JEA T VISIT 15 MINUTES OFFICE 37068 VERNELL MATT OUTPATIEN 2 2 [facility] MINUTES [facility] VERNELL - 2 2 [facility] OUTPATIEN INC T OFFICE 38492 [facility] [place] OUTPATIEN 2 2 T VISIT 15 MINUTES OFFICE 84562 [facility] [place] OUTPATIEN 2 2 T VISIT 25 MINUTES HOSPITAL VERNELL - 2 2 [facility] OUTPATIEN INC T OFFICE 48828 [facility] OUTPATIEN 2 2 SHA SHA T VISIT 15 MINUTES OFFICE 01593 [facility] [place] OUTPATIEN 2 2 T VISIT 15 MINUTES HOSPITAL VERNELL - 1 1 [facility] OUTPATIEN INC T EMERGENCY 23928 ISAAC GRAY 1 1 [facility] HIGH/URGE NT SEVERITY HOSPITAL VERNELL - 1 1 [facility] OUTPATIEN INC T OFFICE 14123 ARTIE ALVA CONSULTAT 1 1 PETER CRUZ NEW/ESTAB PATIENT 60 MIN OFFICE 07447 A Mk ESCOTO A OUTPATIEN 1 1 JEVON REYNA T VISIT PSC 15 MINUTES OFFICE 47688 A Mk ESCOTO A OUTPATIEN 1 1 JEVON REYNA T NEW 20 PSC MINUTES OFFICE 25234 VIERA VIERA OUTPATIEN 0 0 Aravind RAMIREZ JR, J V T VISIT 15 MINUTES OFFICE 73089 VIERA VIERA OUTPATIEN 0 0 Aravind RAMIREZ JR, J V T VISIT 15 MINUTES EMERGENCY 43587 VERNELL 9 9 [facility] DEPARTMEN INC T VISIT LIMITED/M INOR PROB HOSPITAL VERNELL - 9 9 [facility] OUTPATIEN INC T OFFICE 78460 VIERA VIERA OUTPATIEN 9 9 Aravind RAMIREZ JR, J V T VISIT 15 MINUTES OFFICE 63295 VIERA VIERA OUTPATIEN 9 9 Aravind RAMIREZ JR, J V T VISIT 15 MINUTES HOSPITAL VERNELL - 9 9 [facility] OUTPATIEN INC T OFFICE 05397 VIERA VIERA OUTPATIEN 9 9 Aravind RAMIREZ JR, J V T VISIT 15 MINUTES HOSPITAL VERNELL - 9 9 [facility] OUTPATIEN INC T OFFICE 15691 VIERA VIERA OUTPATIEN 9 9 Aravind RAMIREZ JR, J V T VISIT 15 MINUTES HOSPITAL VERNELL - 9 9 [facility] OUTPATIEN INC T OFFICE 62636 VIERA VIERA OUTPATIEN 9 9 Aravind RAMIREZ JR, J V T VISIT 15 MINUTES OFFICE 09607 VIERA VIERA OUTPATIEN 9 9 Aravind RAMIREZ JR, J V T VISIT 15 MINUTES HOSPITAL VERNELL - 9 9 [facility] OUTPATIEN INC T OFFICE 26668 VIERA VIERA OUTPATIEN 9 9 Aravind RAMIREZ JR, J V T VISIT 15 MINUTES OFFICE 72879 VIERA VIERA OUTPATIEN 9 9 Aravind RAMIREZ JR, J V T VISIT 15 MINUTES OFFICE 90494 VIERA VIERA OUTPATIEN 9 9 Aravind RAMIREZ JR, J V T VISIT 15 MINUTES HOSPITAL VERNELL - 8 8 [facility] OUTPATIEN INC T EMERGENCY 52739 [facility]LL 8 8 [facility] T VISIT LOW/MODER SEVERITY EMERGENCY 70854 CHACE MIMS, 8 8 [email or web address] T VISIT ON MODERATE SEVERITY HOSPITAL VERNELL - 8 8 [facility] EMER[facility] 91783 VERNELL 8 8 [facility] T VISIT MODERATE SEVERITY OFFICE 26588 VIERA VIERA OUTPATIEN 8 8 Aravind RAMIREZ JR, J V T VISIT 15 MINUTES PERIODIC 12911 VIERA VIERA PREVENTIV 8 8 Aravind RAMIREZ JR, J V E MED EST PATIENT 12-17YRS OFFICE 32574 Elaine TEIXEIRA OUTSHWETA 8 8 JEVON Terrazas T VISIT PSC 15 MINUTES EMERGENCY 95583 VERNELL 8 8 [facility] V[facility] LIMITED/M INOR PROB EMERGENCY 61326 VERNELL CERNA, 8 8 [facility] T VISIT PROF SERV LOW/MODER SEVERITY HOSPITAL VERNELL - 8 8 [facility] OUTPATIEN INC T OFFICE 84130 [facility] 8 8 Aravind RAMIREZ JR, J V T VISIT 15 MINUTES OFFICE 46854 [facility] 8 8 Aravind RAMIREZ JR, J V T VISIT 15 MINUTES [facility] VERNELL - 8 8 [facility]
--- OUTSIDE RECORDS SUMMARY | 2017-07-20 06:27 | External Medical Summary Rpt | CCD ---
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 Name Role Phone A Mk ESCOTO MD [...] VIELKA TIAN MAT, TIAN Unavailable Unavailable MAT [facility] Unavailable [place]available [place], [facility] [place] [facility] Unavailable [place], [facility] [facility], RASHEEDA Unavailable Unavailable SHA [facility], [facility] Unavailable Unavailable [facility], [facility]available Unavailable [facility], [facility] Unavailable Unavailable ISAAC DORINA, ISAAC Unavailable Unavailable DORINA [facility] Un[facility] Un[facility], [facility] HILARY RHO, HILARY Unavailable Unavailable RHO [facility], Unavailable Unavailable [facility] Un[facility], [facility] Unavailable Unavailable HOSPITAL P, [facility] RODRIGUEZ MALA, RODRIGUEZ MALA Unavailable Unavailable RODRIGUEZ MALA, RODRIGUEZ MALA Unavailable Unavailable [facility], Unavailable Unavailable [facility] Un[facility] KILPELA JEA, KILPELA Unavailable Unavailable JEA KILPELA JEA, KILPELA Unavailable Unavailable JEA KOSTELIC, KOSTELIC Unavailable Unavailable [facility], Unavailable Unavailable [facility], Unavailable Unavailable [facility] ARTIE PETER, Unavailable Unavailable ARTIE PETER [...] [facility] Un[facility], [facility] Unavailable [facility]available DEPT [facility] Unavailable [facility]available DEPT [facility], [facility] YUMI MIMS, Unavailable Unavailable [facility]UM[facility] MIMS, JEVON Henry Unavailable Unavailable Elaine ESCOTO, JEVON, Unavailable Unavailable Elaine C Purpose Continuity of Care Document - 10-30-2007 through 2016 Problems Code Diagnosis DOS Provider Status J45.909 UNSPECIFIED 04-03-2017 ASTHMA, UNCOMPLICAT ED L55.9 SUNBURN, 04-03-2017 UNSPECIFIED R22.0 LOCALIZED 04-03-2017 SWELLING, MASS AND LUMP, HEAD R60.0 LOCALIZED 04-03-2017 EDEMA Z88.0 ALLERGY 04-03-2017 STATUS TO PENIC[place]IN [id number] UNSPECIFIED 03-25-2017 [facility]HMA [facility] UNCOMPLICAT HOSPITA ED L559 SUNBURN 03-25-2017 [facility] UNSPECIFIED N EMERGENCY SERVI R220 LOCALIZED 03-25-2017 [facility] SWELLING N EMERGENCY MASS AND SERVI LUMP HEAD R600 LOCALIZED 03-25-2017 [facility] EDEMA COMMUNTIY HOSPITA Z880 ALLERGY 03-25-2017 [facility] STATUS TO COMMUNTIY PENICILLIN HOSPITA R05 COUGH 02-24-2017 R06.02 SHORTNESS 02-24-2017 OF BREATH R09.1 PLEURISY 02-24-2017 R05 COUGH 02-19-2017 [facility] CHAPELITA R079 CHEST PAIN 02-19-2017 [facility]- UNSPECIFIED [facility] [place] [facility] R091 PLEURISY 02-19-2017 [facility] N EMERGENCY PHYS R509 FEVER 02-19-2017 [facility] [place] UNSPECIFIED RADIOLOGY E22.1 HYPERPROLAC 01-02-2017 TIN[place] E221 HYPERPROLAC 12-31-2016 [facility] [place] [facility] HOSPITA N926 IRREGULAR 12-19-2016 [facility] UNSPECIFIED R1031 RIGHT LOWER 12-13-2016 [facility] HOSPITALS Z3202 ENCOUNTER 12-13-2016 [facility] TEST RESULT NEGATIVE Z789 OTHER 12-13-2016 [place] [facility] STATUS [id number] PAIN IN 03-22-2016 [facility] LEFT WRIST N EMERGENCY PHYS Z720 TOBACCO USE 03-22-2016 [facility] HOSPITA H5213 MYOPIA 11-28-2015 RODR[facility] MALA BILATERAL K66279 PAIN IN 11-06-2015 [facility] [place] RIGHT HAND RADIOLOGY [id number] CONTUSION 11-06-2015 [facility] RT MIDDLE N EMERGENCY FINGER W/O SERV DAMAGE NAIL INIT N569HPF STRIKING 11-06-2015 [facility] AGAINST/STR N EMERGENCY UCK OTH SERV OBJECTS INITIAL ENC R21 RASH AND 10-04-2015 KYLE OTHER PHYSICIANS, NONSPECIFIC PLLC SKIN ERUPTION J069 ACUTE UPPER 09-01-2015 [facility] HOSP RESPIRATORY INC INFECTION UNSPECIFIED R0989 OTH SPEC SX 09-01-2015 [place] & SIGNS [facility]ICAL INVLV THE IMAGING ASS CIRC & RESP SYS R1110 VOMITING 09-01-2015 [facility] MEDICAL IMAGING ASS 12676 ASTHMA, 12-19-2014 [facility]ER[facility] UNSPECIFIED [facility] , INC UNSPECIFIED STATUS 60226 SPRAIN AND 12-19-2014 [facility] P GEAL OF HAND 9595 INJURY 12-19-2014 [place] OTHER AND MEDICAL UNSPECIFIED IMAGING ASS FINGER E8494 PLACE [facility] 12-19-2014 [facility] RECREATION AND SPORT E9170 STRIKE 12-19-2014 [facility] P SPORTS W/O SUBSQT FALL V140 PERSONAL 12-19-2014 [facility] HISTORY OF [facility] ALLERGY TO [facility] P PENICILLIN 6264 IRREGULAR 12-06-2014 [facility] MENSTRUAL PHYSICIANS CYCLE GROUP V2509 OTH GENERAL 12-06-2014 [facility] PHYSICIANS CNSL&ADVICE GROUP CONTRACEPT MANAGEMENT V2549 SURVEILLANC 12-06-2014 [facility] E OT PREV PHYSICIANS PRSC GROUP CONTRACEPT METHOD 1110 PITYRIASIS 10-11-2014 A Mk SINCLAIR MD PSC 684 IMPETIGO 10-11-2014 A Mk ESCOTO MD PSC V259 UNSPECIFIED 09-21-2014 [facility] PH[facility]ANS CONTRACEPTI GROUP VE MANAGEMENT 7840 HEADACHE 06-29-2014 [facility] N EMERGENCY PHYS 5758 OTHER 01-03-2014 [facility] SPECIFIED VIELKA DISORDER OF GALLBLADDER 12066 ABDOMINAL 01-03-2014 [facility] PAIN RIGHT [facility] UPPER INC QUADRANT 5589 OTH&UNSPEC 12-30-2013 [place] NONINFECTIO US GASTROENTER ITIS&COLITI S 5699 UNSPECIFIED 12-30-2013 CARMEN DISORDER VIELKA OF INTESTINE 5779 UNSPECIFIED 12-30-2013 CAR[facility] DISEASE OF VIELKA PANCREAS 6202 OTHER AND 12-30-2013 CAR[facility] UNSPECIFIED VIELKA OVARIAN CYST 56249 ABDOMINAL 12-30-2013 CARMEN PAIN, VIELKA UNSPECIFIED SITE 02996 OTHER 12-13-2013 FIELD AMB SPECIFIED TMJ DISORDERS V2501 GENERAL 11-16-2013 [facility] PRESCRIPTIO [facility] DEPT N ORAL NESSA CONTRACEPTS V2689 OTHER 11-16-2013 [facility] SPECIFIED DISTRICT PROCREATIVE [facility] DEPT MANAGEMENT NESSA 4660 ACUTE 12-01-2012 [facility] [place] BRONCHITIS 34100 ACUTE 12-01-2012 [facility] [place] BRONCHOSPAS M 7264 ENTHESOPATH 09-18-2012 [place] [place] Y OF WRIST AND CARPUS 4619 ACUTE 08-21-2012 KILPELA JEA SINUSITIS, UNSPECIFIED V741 SCREENING 06-23-2012 [facility] CO EXAMINATION HIGH FOR SCHOOL HEAL PULMONARY TUBERCULOSI S 2382 NEOPLASM OF 04-14-2012 [facility] UNCERTAIN [facility] BEHAVIOR OF INC SKIN 06037 GANGLION OF 04-14-2012 [facility] [place] TENDON SHEATH 7822 LOCALIZED 04-14-2012 CAR[facility] SUPERFICIAL VIELKA SWELLING MASS OR LUMP 92200 GENERALIZED 02-13-2012 [place] PAIN [facility]ICAL [facility] 27158 UNSPECIFIED 02-13-2012 [facility] [place] SITE OF ANKLE SPRAIN AND STRAIN 96963 SPRAIN AND 02-13-2012 [facility] [place] STRAIN OF UNSPECIFIED SITE OF FOOT 9599 INJURY 02-13-2012 [place] OTHER AND MEDICAL UNSPECIFIED IMAGING ASS UNSPECIFIED SITE 7821 RASH AND 11-28-2011 [facility] OTHER NONSPECIFIC SKIN ERUPTION 7847 EPISTAXIS 11-28-2011 [facility] 4659 ACUTE URIS 11-11-2011 [place] OF UNSPECIFIED SITE V720 EXAMINATION 10-03-2011 SCIFRES ANG OF EYES AND VISION 7862 COUGH 08-21-2011 [facility] 5110 PLEURISY 08-20-2011 [facility] WITHOUT [facility] MENTION INC EFFUS/CURRE NT TB 4778 ALLERGIC 05-08-2011 ARTIE RHINITIS PETER DUE TO OTHER ALLERGEN 38565 EXTRINSIC 05-08-2011 [facility] ASTHMA, [facility] UNSPECIFIED [...] ON TESTS 2449 UNSPECIFIED 03-27-2011 [facility] HYPOTHYROID ISM 11288 OTHER SIGN 03-27-2011 A Mk ESCOTO AND SYMPTOM PSC IN BREAST 7831 ABNORMAL 03-27-2011 [facility] [place] INC 6929 CONTACT 03-12-2011 A Mk ESCOTO DERMATITIS& PSC OTHER ECZEMA DUE UNSPEC CAUSE 13942 CONTACT AND 01-19-2010 VIERA ALLERGIC JR, J V DERMATITIS OF EYELID 462 ACUTE 01-16-2010 [facility] PHARYNGITIS JR, J V 4720 CHRONIC 01-16-2010 [facility] RHINITIS JR, J V 4871 INFLUENZA 07-28-2009 [facility] WITH OTHER JR, J V RESPIRATORY MANIFESTATI ONS 84049 FEVER 07-28-2009 [facility] UNSPECIFIED JR, J V 7841 THROAT PAIN 07-25-2009 [facility] INC 4739 UNSPECIFIED 07-05-2009 [facility] SINUSITIS JR, J V 3670 HYPERMETROP 06-09-2009 RAFAEL [place] VISION 99859 OTHER 05-09-2009 [facility] ABNORMAL JR, J V GLUCOSE 6111 HYPERTROPHY 04-29-2009 [facility] OF BREAST Aravind RAMIREZ V V163 FAMILY 04-29-2009 [facility] HISTORY OF Aravind RAMIREZ V MALIGNANT NEOPLASM OF BREAST 490 BRONCHITIS 03-01-2009 [facility] NOT Aravind RAMIREZ V SPECIFIED ACUTE OR CHRONIC 8921 OPEN WOUND 08-14-2008 [place] OF FOOT MEDICAL EXCEPT TOE [facility] COMPLICATED 8931 OPEN WOUND 08-14-2008 [place] OF TOE, [facility] [employer] [facility] E8490 PLACE OF 06-27-2008 [place] OCCURRENCE, [facility] E927 OVEREXERTIO 06-27-2008 [place] N&STRENUOUS MEDICAL &REPETITIVE [facility] MVMNTS/LOAD S [...] 3 00 CY H #0 23 32 MN 00 05 06 10 5 00 CV [...] 7- 7- 00 SI 65 S ve MN [address] ED 20 [...] 7- 1- 00 SI 93 N ve MN 02 20 20 DE BA ED 20 [...] 1- 2- 00 SI 65 Av ve MN 02 20 20 DE ai ED 20 [...] DOS Code Location Performer Comment INJ J2930 [facility] METHYLPRD 7 N N NISOLONE COMMUNTIY COMMUNTIY SODIUM HOSPITA HOSPITA SUCCNAT TO 125 MG RADIOLOGI [address] [facility] C 7 N N EXAMINATI COMMUNTIY COMMUNTIY ON CHEST HOSPITA HOSPITA SINGLE VIEW FRONTAL GROUND A[address] [facility] MILEAGE 7 KYLE WRIGHT PER CO EMS CO EMS STATUTE MILE AMB A[address] [facility] SERVICE 7 KYLE WRIGHT ALS CO EMS CO EMS EMERGENCY TRANSPORT LEVEL [address] [facility] PROPH/DX 7 N N NJX IV COMMUNTIY COMMUNTIY PUSH HOSPITA HOSPITA SINGLE/1S T SBST/DRUG INJECTION A[address] [facility] 7 N N GADOLINIU COMMUNTIY COMMUNTIY M BASED HOSPITA HOSPITA MR CONTRAST NOS ML MRI BRAIN 22086 [facility] [place] KOSTELIC BRAIN 7 RADIOLOGY STEM W/O W/[place] [address] [facility] PROLACTIN 7 [facility] [place] [address] [facility] PROLACTIN 7 [facility] [place] [address] [facility] TESTOSTER 7 [facility]ALTH[facility] HEALTH[facility] ONE TOTAL E E HOSPITALS HOSPITALS DEHYDROEP 71175 [facility] IANDROSTE 7 HEALTHCAR HEALTHCAR MADONNA-SULF E E ATE [facility] HEMOGLOBI 32262 [facility] N 7 HEALTHCAR HEALTHCAR GLYCOSYLA E E LILY A1C [facility] [place] [address] [facility] HYDROXYPR 7 HEALTHCAR HEALTHCAR OGESTERON E E E 17-D HOSPITALS HOSPITALS BLOOD 47215 [facility] COUNT 7 HEALTHCAR HEALTHCAR COMPLETE E E AUTOMATED HOSPITALS HOSPITALS URINE 54257 [facility] CALDERON 7 MEDICAL TEST SERV VISUAL FOUNDATIO COLOR N CMPRSN METHS GONADOTRO 16856 [facility] PIN 7 HEALTHCAR HEALTHCAR FOLLICLE E E STIMULATI HOSPIT[place] [address] [facility] INSULIN 7 HEALTHCAR HEALTHCAR TOTAL [place] [address] [facility] FREE 7 HEALTHCAR HEALTHCAR THYROXINE [place] [address] [facility] THYROID 7 HEALTHCAR HEALTHCAR STIMULATI E E NG HOSPITALS HOSPITALS HORMONE TSH GONADOTRO 44701 [facility] PIN 7 HEALTHCAR HEALTHCAR CHORIONIC E E HOSPITALS HOSPITALS QUANTITAT AGUSTIN PREDNISON J7512 [facility] E 6 N N IMMEDIATE COMMUNTIY COMMUNTIY HOSPITA HOSPITA RLSE/PRIETO CHOW RLSE ORAL 1 MG FRAMES V2020 [facility] PURCHASES 6 1 VISN V2103 [facility] PLANO 6 TO+/-4.00 D SPHER 0.12-2.00 D CYL EA LENS V2784 [facility] POLYCARBO 6 ASHIA OR EQUAL ANY INDEX PER LENS SCRATCH V2760 [facility] RESISTANT 6 COATING PER LENS FITTING 05438 [facility] SPECTACLE 6 S XCPT APHAKIA MONOFOCAL SPHERE V2100 [facility] SINGLE 6 VISION PLANO +/- 4.00 PER LENS SCRATCH V2760 [facility] MAL[facility] RESISTANT 6 COATING PER LENS FITTING 47036 [facility] MALA SPECTACLE 6 S XCPT APHAKIA MONOFOCAL FRAMES V2020 [facility] MALA R[facility]RIG[facility]Z MALA PURCHASES 6 LENS V2784 [facility] POLYCARBO 6 ASHIA OR EQUAL ANY INDEX PER LENS OPHTH 88356 [facility] MEDICAL 6 XM&EVAL COMPRHNSV ESTAB PT 1/> RADEX 54291 [facility] [place] HILARY HAND 6 RADIOLOGY RHO MINIMUM 3 VIEWS APPLICATI [address] [facility] ON FINGER 6 N N SPLINT COMMUNTIY COMMUNTIY STATIC HOSPITA HOSPITA RADIOLOGI 38829 [place] QUINTERO ALL C EXAM 5 MEDICAL CHEST 2 IMAGING VIEWS ASS FRONTAL&L ATERAL IAADI 32520 [facility] INFLUENZA 5 [facility] B VIRUS INC INC IAADI 67231 [facility] INFFLUENZ 5 [facility] A A VIRUS INC INC RADEX 55076 [facility] HAND 5 [facility] MINIMUM 3 [place] [address] CARMEN CARMEN ABDOMINAL 4 VIELKA VIELKA REAL TIME W/[place] [address] [facility] INFUSION 4 [facility] THERAPY/P INC INC ROPHYLAXI S /DX 1ST TO 1 HR THERAPEUT 63991 [facility] IC 4 [facility] INJECTION INC INC IV PUSH EACH NEW DRUG BLOOD 90240 [facility] COUNT 4 [facility] COMPLETE INC INC AUTO&AUTO DIFRNTL WBC URNLS DIP 89297 [facility] 4 [facility] STICK/TAB INC INC [place] [address] [facility] M[facility] AMYLASE 4 [place] [address] VERNE[facility] MTAT LIPASE 4 [facility] H[facility] INC INC COMPREHEN 50488 [facility] SIVE 4 [facility] METABOLIC INC INC PANEL INJECTION J2405 [facility] MATT 4 [facility] ONDANSETR INC INC ON HCL PER 1 MG INJECTION J2405 [facility] MATT 4 [facility] ONDANSETR INC INC ON HCL PER 1 MG COMPREHEN 51523 [facility] SIVE 4 [facility] METABOLIC INC INC PANEL LOCM Q9967 [facility] MATT [phone] 4 [facility] MG/ML INC [place] [address] CARMEN CARMEN ABDOMEN & 4 VIELKA VIELKA PELVIS W/O CONTRAST MATERIAL IMMUNOASS 68332 [facility] AY NFCT 4 [facility] AGT ANTB INC INC QUAL/SEMI GLORIA 1 STEP THERAPEUT 38053 [facility] IC 4 [facility] PROPHYLAC INC INC TIC/DX INJECTION SUBQ/IM URNLS DIP 86356 [facility] MATT 4 [facility] STICK/TAB INC [place] [address] VER[facility] MATT ABDOMEN & 4 [facility] PELVIS INC INC W/CONTRAS T MATERIAL BLOOD 36623 [facility] COUNT 4 [facility] COMPLETE INC INC AUTO&AUTO DIFRNTL WBC THERAPEUT 81962 [facility] M[facility] IC 4 [facility] INJECTION INC [place] [address] [facility] INFUSION 4 [facility] THERAPY/P INC INC ROPHYLAXI S /DX 1ST TO 1 HR RADEX ABD 33909 [facility] [place] COMPL 4 [facility] AQT ABD INC INC W/S/E/D VIEWS 1 VIEW CH URINE 91304 VER[facility] VERNELL 4 [facility] TEST INC INC VISUAL COLOR CMPRSN METHS THER 04279 [facility] PROPH/DX 4 [facility] NJX EA INC INC SEQL IV PUSH SBST/DRUG FAC 3D 00680 [facility] RENDERING 4 [facility] INC INC W/INTERP& POSTPROC DIFF WORK STATION IADNA 27354 [facility] DEPT [facility] DEPT TRACHOMAT NESSA NESSA IS AMPLIFIED PROBE TQ CONTRACEP A4267 [facility] TIVE 4 DISTRICT DISTRICT SUPPLY [facility] DEPT [facility] DEPT CONDOM NESSA NESSA MALE EACH CONTRACEP S4993 [facility] TIVE 4 [facility] FOR [facility] DEPT [facility] DEPT NESSA NESSA CONTROL URINE 22771 [facility] 4 DISTRICT DISTRICT TEST [facility] DEPT [facility] DEPT VISUAL NESSA NESSA COLOR CMPRSN METHS IADNA 93814 [facility] NEISSERIA 4 [facility] DISTRICT HLTH DEPT HLTH DEPT GONORRHOE NESSA NESSA AE AMPLIFIED PROBE TQ IAADIADOO 02201 [facility] [place] 3 INFLUENZA RADEX 32324 [facility] WRIST 2 2 [facility] VIEWS INC INC RADEX 82652 [facility] FOOT 2 [facility] COMPLETE INC INC MINIMUM 3 VIEWS FITTING 86460 SCIFRES SCIFRES SPECTACLE 1 ANG ANG S XCPT APHAKIA MONOFOCAL DETERMINA 88592 SCIFRES SCIFRES TION 1 ANG ANG REFRACTIV E STATE 1 VISN V2103 SCIFRES SCIFRES PLANO 1 ANG ANG TO+/-4.00 D SPHER 0.12-2.00 D CYL EA FRAMES V2020 SCIFRES SCIFRES PURCHASES 1 ANG ANG OPHTH 35793 SCIFRES SCIFRES MEDICAL 1 ANG ANG XM&EVAL COMPRHNSV ESTAB PT 1/> RADIOLOGI 24736 [facility] EXAM 1 MEDICAL VIELKA CHEST 2 IMAGING VIEWS ASS FRONTAL&L ATERAL URINE 25037 [facility]ATT 1 [facility] TEST INC INC VISUAL COLOR CMPRSN METHS CULTURE 31572 [facility] BACTERIAL 1 [facility] INC INC QUANTTATI VE COLONY COUNT URINE URNLS DIP 17711 [facility] MATT 1 [facility] STICK/TAB INC INC LET REAGENT AUTO MICROSCOP Y BLOOD 94186 [facility] COUNT 1 [facility] COMPLETE INC INC AUTO&AUTO DIFRNTL WBC BASIC 80281 [facility] METABOLIC 1 [facility] PANEL INC INC CALCIUM TOTAL IAADI 97897 [facility] M[facility] INFFLUENZ 1 [facility] A A VIRUS INC INC IAADI 53148 [facility] M[facility] INFLUENZA 1 [facility] B VIRUS INC INC PREPJ& 82977 ARTIE ARTIE ALLERGEN 1 PETER PETER IMMUNOTHE RAPY 1/PROTEOMICS SCIENTIST ANTIGEN ALLERGEN 15255 [facility] SPECIFIC 1 [facility] IGE INC INC GLORIA/SEMI GLORIA EA ALLERGEN BRNCDILAT 62873 ARTIE ARTIE RSPSE 1 PETER GREEN SPMTRY PRE&POST- BRNCDILAT ADMN PERCUTANE 08034 ARTIE ARTIE OUS TESTS 1 PETER GREEN W/ALLERGE MADELAINE EXTRACTS DEMO&/LAILA 15807 ARTIE ARTIE L OF PT 1 PETER GREEN UTILIZ AERSL GEN/NEB/I NHLR/[place] [address] [facility] THYROID 1 [facility] [place] [address] [facility] PROLACTIN 1 [place] [address] VER[facility] MATT STREPTOCO 9 [facility] [place] [address] [facility] MATT THYROID 9 [facility] STIMULATI INC INC NG HORMONE TSH OPHTH 47151 RAFAEL JOSE RAMON, MEDICAL 9 VISION JIMMIE M XM&EVAL COMPRHNSV ESTAB PT 1/> FITTING 73839 RAFAEL JOSE RAMON, SPECTACLE 9 VISION JIMMIE M S XCPT APHAKIA MONOFOCAL SPHERE V2100 RAFAEL JOSE RAMON, SINGLE 9 VISION JIMMIE M VISION PLANO +/- 4.00 PER LENS FRAMES V2020 RAFAELMARIA ALEJANDRA ALBRIGHT, PURCHASES 9 [place] [address] V[facility]RE[facility] MATT THYROXINE 9 [facility] [place] [address] [facility] MATT ESTROGENS 9 [facility] TOTAL INC INC GONADOTRO 97925 [facility] PIN 9 [facility] FOLLICLE INC INC STIMULATI NG HORMONE GLUCOSE 78416 [facility] QUANTITAT 9 [facility] AGUSTIN BLOOD INC INC XCPT REAGENT STRIP THYROID 88035 [facility] HORM 9 [facility] UPTK/THYR INC [place] [address] VERNELL VERNELL THYROID 9 MEM [facility]OS[facility] STIMULAT[place] [address] [facility] M[facility] STREPTOCO 9 [facility] CCUS INC INC GROUP A RADIOLOGI 32393 KALEB JENNIFER, C 8 MEDICAL EMILIE Boyer EXAMINATI IMAGING ON FOOT 2 ASSOCIATE VIEWS S AVULSION 66419 MAS FELICITA, NAIL 8 [facility] PARTIAL/C ON OMPLETE SIMPLE 1 INCI 8605 [facility] M[facility] W/REMOVAL 8 [facility] INC INC FB/DEVICE FROM SKIN & SUBQ TISSUE RADEX 04143 KALEB JENNIFER, ANKLE 8 MEDICAL EMILIE Boyer COMPLETE IMAGING MINIMUM 3 ASSOCIATE VIEWS S IADNA 53308 Elaine TEIXEIRA STREPTOCO 8 JEVON Terrazas CCUS PSC GROUP A QUANTIFIC ATION URNLS DIP 63019 [facility] 8 [facility] STICK/TAB INC INC LET REAGENT AUTO MICROSCOP Y Encounters Encounter Start End Date Code Location Performer Type Date EMERGENCY 25907 [facility] MODERATE [facility]VERITY [facility]OSPITAL [facility] - 7 7 N OUTPATIEN COMMUNTIY T [facility] EMERGENCY 27570 [facility] 7 7 N DEPARTMEN COMMUNTIY T VISIT [facility] LIMITED[facility]M INOR PROB EMERGENCY 27608 [facility] 7 7 N DEPARTMEN COMMUNTIY T VISIT HOSPITA HIGH/URGE NT SEVERITY HOSPITAL [facility] - 7 7 N OUTPATIEN COMMUNTIY T [facility] 7 7 [facility]IT[facility] [place] 04122 [place] [facility] OUT[facility] 7 7 MEDICAL T NEW 20 SERV MINUTES [facility] - 7 7 [facility] OUTPATIEN E T HOSPITALS [facility] - 6 6 N OUTPATIEN COMMUNTIY T HOSPITA EMERGENCY 89481 [facility] 6 6 N [facility] COMMUNTIY T VISIT [facility] MODERATE [facility]VERITY HOSPITAL [facility] - 6 6 N OUTPATIEN COMMUNTIY T [facility]OSPFORMERLY [facility] EMERGENCY 85723 [facility]' [facility] 6 6 [place] SUMAYA [facility] EMERGENCY T VISIT SERV HIGH/URGE NT SEVERITY EMERGENCY 45200 VERNELL 5 5 [facility] T [facility]ISIT LIMITED/M INOR [facility] VERNELL - 5 5 [facility] 78095 KYLE TIAN 5 5 PHYSICIAN MAT [facility] S, [facility] T VISIT MODERATE SEVERITY HOSPITAL VERNELL - 5 5 [facility] T EMERGENCY 85317 VERNELL 5 5 [facility] T VISIT LOW/MODER SEVERITY HOSPITAL VERNELL Elizabeth 5 5 [facility] EMERGENCY 65200 VERNELL GRAY 5 5 [facility] T VISIT P LOW/MODER SEVERITY OFFICE 07697 [facility] JUAN ALBERTO COLLIER 5 5 PHYSICIAN SHERRELL T VISIT S GROUP 15 MINUTES OFFICE 77030 Elaine COLEMAN [facility] 5 JEVON REYNA T VISIT PSC 15 MINUTES OFFICE 15621 [facility] JUAN ALBERTO COLLIER 4 4 PHYSICIAN SHERRELL T VISIT S GROUP 15 MINUTES EMERGENCY 16990 SOMMER MATT 4 4 [place] MEO [facility] EMERGENCY T VISIT PHYS HIGH/URGE NT SEVERITY HOSPITAL VERNELL - 4 4 [facility] OUT[facility] T EMERGENCY 97028 ISAAC GRAY DEPT 4 4 [facility] VISIT HIGH SEVERITY& THREAT FUNCJ EMERGENCY 99090 VERNELL 4 4 [facility] DEPART[facility] INC T VISIT HIGH/URGE NT SEVERITY HOSPITAL VERNELL - 4 4 [facility] T [facility]PITAL VERNELL - 4 4 [facility] T EMERGENCY 94777 LILIANA VIRGINIA LILIANA VIRGINIA DEPT 4 4 VISIT HIGH SEVERITY& THREAT FUNCJ OFFICE 67352 FIELD AMB FIELD AMB OUTPATIEN 4 4 T VISIT 15 MINUTES PERIODIC 20545 [facility] [facility] DEPT HLTH DEPT PATIENT NESSA NESSA 18-39 YRS OFFICE 40659 [facility] [place] 3 3 T VISIT 15 MINUTES OFFICE 55989 [facility] 2 2 T VISIT 15 MINUTES OFFICE 76115 [facility] KILPELA OUTPATIEN 2 2 JEA JEA T VISIT 15 MINUTES OFFICE 43474 [facility]ATT OUTPATIEN 2 2 [facility] MINUTES [facility] - 2 2 [facility] T OFFICE 33027 [facility] 2 2 T VISIT 15 MINUTES OFFICE 16809 [facility] 2 2 T VISIT 25 MINUTES [facility] T OFFICE 10659 [facility] OUTPATIEN 2 2 SHA SHA T VISIT 15 MINUTES OFFICE 49976 [facility] 2 2 T VISIT 15 MINUTES [facility] T EMERGENCY 03445 ISAAC GRAY 1 1 [facility]URGE NT SEVERITY [facility] - 1 1 [facility] OUTPATIEN INC T OFFICE 53700 ARTIE ALVA CONSULTAT 1 1 PETER CRUZ NEW/ESTAB PATIENT 60 MIN OFFICE 73558 A Mk ESCOTO A OUTPATIEN 1 1 JEVON REYNA T VISIT PSC 15 MINUTES OFFICE 26986 A Mk ESCOTO A OUTPATIEN 1 1 JEVON REYNA T NEW 20 PSC MINUTES OFFICE 66636 VIERA VIERA OUTPATIEN 0 0 Aravind RAMIREZ JR, J V T VISIT 15 MINUTES OFFICE 23561 [facility] OUTPATIEN 0 0 Aravind RAMIREZ JR, J V T VISIT 15 MINUTES EMERGENCY 69211 [facility] 9 9 [facility] DEPARTMEN INC T VISIT LIMITED/M INOR PROB [facility] - 9 9 [facility] OUTPATIEN INC T OFFICE 16281 VIERA VIERA OUTPATIEN 9 9 Aravind RAMIREZ JR, J V T VISIT 15 MINUTES OFFICE 43554 VIERA VIERA OUTPATIEN 9 9 Aravind RAMIREZ JR, J V T VISIT 15 MINUTES [facility] - 9 9 [facility] OUTPATIEN INC T OFFICE 77956 VIERA VIERA OUTPATIEN 9 9 Aravind RAMIREZ JR, J V T VISIT 15 MINUTES [facility] - 9 9 [facility] T OFFICE 29771 VIERA VIERA OUTPATIEN 9 9 Aravind RAMIREZ JR, J V T VISIT 15 MINUTES [facility] - 9 9 [facility] OUTPATIEN INC T OFFICE 36014 VIERA VIERA OUTPATIEN 9 9 Aravind RAMIREZ JR, J V T VISIT 15 MINUTES OFFICE 87099 [facility] VIERA OUTPATIEN 9 9 Aravind RAMIREZ JR, J V T VISIT 15 MINUTES [facility] - 9 9 [facility] OUTPATIEN INC T OFFICE 91701 VIERA VIERA OUTPATIEN 9 9 Aravind RAMIREZ JR, J V T VISIT 15 MINUTES OFFICE 47116 [facility]ER[facility] VIERA OUTPATIEN 9 9 Aravind RAMIREZ JR, J V T VISIT 15 MINUTES OFFICE 13567 VIERA VIERA OUTPATIEN 9 9 Aravind RAMIREZ JR, J V T VISIT 15 MINUTES [facility] - 8 8 [facility] OUTPATIEN INC T EMERGENCY 64293 [facility] T VISIT LOW/MODER SEVERITY EMERGENCY 08748 [facility] MIMS, 8 8 [facility] T VISIT ON MODERATE SEVERITY [facility] - 8 8 [facility] 76715 [facility] 8 8 [facility] T VISIT MODERATE SEVERITY OFFICE 00220 VIERA VIERA OUTPATIEN 8 8 Aravind RAMIREZ JR, J V T VISIT 15 MINUTES PERIODIC 31450 VIERA VIERA PREVENTIV 8 8 Aravind RAMIREZ JR, J V E MED EST PATIENT 12-17YRS OFFICE 67954 Elaine TEIXEIRA OUTSHWETA 8 8 JEVON Terrazas T VISIT PSC 15 MINUTES EMERGENCY 87773 [facility] 8 8 [facility] V[facility]/M INOR PROB EMERGENCY 42500 [facility] CERNA, 8 8 [facility] T VISIT PROF SERV LOW/MODER SEVERITY [facility]OSP[facility] - 8 8 [facility] OUTPATIEN INC T OFFICE 52146 [facility] 8 8 Aravind RAMIREZ JR, J V T VISIT 15 MINUTES OFFICE 19613 [facility] 8 8 Aravind RAMIREZ JR, J V T VISIT 15 MINUTES [facility] - 8 8 [facility]
--- OUTSIDE RECORDS SUMMARY | 2017-07-20 06:31 | External Medical Summary Rpt | CCD ---
Author Author , CHICO GOLDEN Address Unknown Phone [email or web address] Immunization Name Date Rout CVX Reac Dose Comm Prov Is Faci e tion ent ider Refu lity Give sed n Tdap 07-2 115 999 Hist H149 No H149 , 7-20 [facility] Adso 07 al rbed Info rmat ion - Sour ce Unsp ecif ied
--- OUTSIDE RECORDS SUMMARY | 2017-07-20 06:31 | External Medical Summary Rpt | CCD ---
Author Author , CHICO GOLDEN Address Unknown Phone [email or web address] Care Team Providers Care Anesthesiology Faculty Name Role Phone A Mk ESCOTO MD PSC, Elaine Unavailable Unavailable Mk ESCOTO MD PSC BEAVEN, BEAVEN Unavailable Unavailable VIERA JR, J V, Unavailable Unavailable VIERA JR, J V AVENDANO SHERRELL, AVENDANO Unavailable Unavailable SHERRELL [facility], Unavailable Unavailable [facility] CARMEN VEILKA, Unavailable Unavailable CARMEN VIELKA CARMEN VIELKA, Unavailable Unavailable CARMEN VIELKA TIAN MAT, TIAN Unavailable Unavailable MAT [facility] [place] [facility] [place] [facility] Un[facility] [place] [facility] [facility], RASHEEDA Unavailable Unavailable [facility] Unavailable Unavailable [facility] FIELD AMB, FIELD AMB Unavailable Unavailable [facility], FIELD AMB Unavailable Unavailable BANEGAS, BANEGAS Unavailable Unavailable ISAAC DORINA, ISAAC Unavailable Unavailable DORINA [facility] Un[facility] Un[facility], [facility] Unavailable Unavailable [facility], [facility] SCOTT, SCOTT Unavailable Unavailable [facility], Unavailable Unavailable [facility] Un[facility], [facility] Unavailable Unavailable HOSPITAL P, [facility] P RODRIGUEZ MALA, RODRIGUEZ MALA Unavailable Unavailable RODRIGUEZ MALA, RODRIGUEZ MALA Unavailable Unavailable [facility], Unavailable Unavailable [facility] Unavailable [facility]available [facility], [facility] KILPELA JEA, KILPELA Unavailable Unavailable JEA KILPELA JEA, KILPELA Unavailable Unavailable JEA KOSTELIC, KOSTELIC Unavailable Unavailable [facility], Unavailable Unavailable [facility], Unavailable Unavailable [facility] ARTIE PETER, Unavailable Unavailable ARTIE PETER [...] ANG SCIFRES ANG, SCIFRES Unavailable Unavailable ANG SCIFRES, JIMMIE M, Unavailable Unavailable SCIES, JIMMIE M NEHEMIAH, GONZALEZ Mandujano, NEHEMIAH, Unavailable Unavailable GONZALEZ Mandujano [facility], [facility]available Un[facility], [facility] Unavailable Unavailable EMERGENCY SERVI, [facility] Unavailable Unavailable HOSPITALS, [facility] Unavailable Unavailable DEPT [facility] Unavailable [facility]available DEPT [facility], [facility] DE[facility] YUMI MIMS, Unavailable Unavailable YUMI MIMS, JEVON Henry Unavailable Unavailable Elaine ESCOTO, JEVON, Unavailable Unavailable Elaine C Purpose Continuity of Care Document - 10-30-2007 through 2016 Problems Code Diagnosis DOS Provider Status [id number] UNSPECIFIED 03-25-2017 [facility] ED L559 SUNBURN 03-25-2017 [facility] UNSPECIFIED N EMERGENCY SERVI R220 LOCALIZED 03-25-2017 [facility] SWELLING N EMERGENCY MASS AND SERVI [place] HEAD R600 LOCALIZED 03-25-2017 [facility] EDEMA [facility] HOSPITA Z880 ALLERGY 03-25-2017 [facility] STATUS TO COMMUNTIY [place] HOSPITA R05 COUGH 02-19-2017 [facility] R079 CHEST PAIN 02-19-2017 [facility]- UNSPECIFIED [facility] R091 PLEURISY 02-19-2017 [facility] N EMERGENCY PHYS R509 FEVER 02-19-2017 [facility] UNSPECIF[facility] RADIOLOGY E221 HYPERPROLAC 12-31-2016 [facility]PITA N926 IRREGULAR 12-19-2016 [facility] UNSPECIFIED R1031 RIGHT LOWER 12-13-2016 [facility] H[facility] Z3202 ENCOUNTER 12-13-2016 [facility] TEST RESULT NEGATIVE Z789 OTHER 12-13-2016 [facility] STATUS [id number] PAIN IN 03-22-2016 [facility] LEFT WRIST N EMERGENCY PHYS Z720 TOBACCO USE 03-22-2016 [facility] HOSPITA H5213 MYOPIA 11-28-2015 RODRIG[facility] MALA BILATERAL [id number] PAIN IN 11-06-2015 [facility] [place] [facility] [id number] CONTUSION 11-06-2015 [facility] RT MIDDLE N EMERGENCY FINGER W/O SERV DAMAGE NAIL INIT [id number] STRIKING 11-06-2015 [facility] AGAINST/STR N EMERGENCY UCK OTH SERV OBJECTS INITIAL ENC R21 RASH AND 10-04-2015 [facility] OTHER PHYSICIANS, NONSPECIFIC PLLC SKIN ERUPTION J069 ACUTE UPPER 09-01-2015 [facility] RESPIRATORY INC INFECTION UNSPECIFIED R0989 OTH SPEC SX 09-01-2015 [facility] & SIGNS MEDICAL INVLV THE IMAGING ASS CIRC & RESP SYS R1110 VOMITING 09-01-2015 [place] UNSPECIFIED MEDICAL IMAGING ASS 48869 ASTHMA, 12-19-2014 [facility] UNSPECIFIED [facility] UNSPECIFIED STATUS 18260 SPRAIN AND 12-19-2014 [facility] STRAIN OF [facility] P GEAL OF HAND 9595 INJURY 12-19-2014 [place] OTHER AND MEDICAL UNSPECIFIED IMAGING ASS FINGER E8494 PLACE OF 12-19-2014 [facility] OCCURRENCE [facility] P RECREATION AND SPORT E9170 STRIKE 12-19-2014 [facility] AGNST/STRUC [facility] P SPORTS W/O SUBSQT FALL V140 PERSONAL 12-19-2014 [facility] HISTORY OF [facility] ALLERGY TO [facility] P PEN[place]IN 6264 IRREGULAR 12-06-2014 [facility] MENSTRUAL PHYSICIANS CYCLE GROUP V2509 OTH GENERAL 12-06-2014 [facility] PHYSICIANS CNSL&ADVICE GROUP CONTRACEPT MANAGEMENT V2549 SURVEILLANC 12-06-2014 [facility] E OT PREV PHYSICIANS PRSC GROUP CONTRACEPT METHOD 1110 PITYRIASIS 10-11-2014 A Mk SINCLAIR MD PSC 684 IMPETIGO 10-11-2014 A Mk ESCOTO MD PSC V259 UNSPECIFIED 09-21-2014 [facility] PHYSICIANS CONTRACEPTI GROUP VE MANAGEMENT 7840 HEADACHE 06-29-2014 [facility] N EMERGENCY PHYS 5758 OTHER 01-03-2014 [facility] SPECIFIED VIELKA DISORDER OF GALLBLADDER 73337 ABDOMINAL 01-03-2014 [facility] PAIN RIGHT [facility] UPPER INC QUADRANT 5589 OTH&UNSPEC 12-30-2013 [facility] [place] NONINFECTIO US GASTROENTER ITIS&COLITI S 5699 UNSPECIFIED 12-30-2013 CAR[facility] DISORDER VIELKA OF INTESTINE 5779 UNSPECIFIED 12-30-2013 [facility] DISEASE OF VIELKA PANCREAS 6202 OTHER AND 12-30-2013 [facility] UNSPECIFIED VIELKA OVARIAN CYST 13509 ABDOMINAL 12-30-2013 CARMEN PAIN, VIELKA UNSPECIFIED SITE 69983 OTHER 12-13-2013 FI[facility] AMB SPECIFIED TMJ DISORDERS V2501 GENERAL 11-16-2013 [facility] PRESCRIPTIO [facility] DEPT N ORAL NESSA CONTRACEPTS V2689 OTHER 11-16-2013 [facility] SPECIFIED DISTRICT PROCREATIVE [facility]PT MANAGEMENT NESSA 4660 ACUTE 12-01-2012 [facility] [place] BRONCHITIS 24925 ACUTE 12-01-2012 [facility] [place] BRONCHOSPAS M 7264 ENTHESOPATH 09-18-2012 [facility] [place] Y OF WRIST AND CARPUS 4619 ACUTE 08-21-2012 KILPELA JEA SINUSITIS, UNSPECIFIED V741 SCREENING 06-23-2012 [facility] EXAMINATION HIGH FOR SCHOOL HEAL PULMONARY TUBERCULOSI S 2382 NEOPLASM OF 04-14-2012 [facility] BEHAVIOR OF INC SKIN 62743 GANGLION OF 04-14-2012 [facility] [place] TENDON SHEATH 7822 LOCALIZED 04-14-2012 CARMEN SUPERFICIAL VIELKA SWELLING MASS OR LUMP 06402 GENERALIZED 02-13-2012 [facility] IM[facility] ASS 54261 UNSPECIFIED 02-13-2012 [place] SITE OF ANKLE SPRAIN AND STRAIN 56759 SPRAIN AND 02-13-2012 [facility] [place] STRAIN OF UNSPECIFIED SITE OF FOOT 9599 INJURY 02-13-2012 [place] OTHER AND MEDICAL UNSPECIFIED IMAGING ASS UNSPECIFIED SITE 7821 RASH AND 11-28-2011 [facility] OTHER NONSPECIFIC SKIN ERUPTION 7847 EPISTAXIS 11-28-2011 [facility] 4659 ACUTE URIS 11-11-2011 [facility] OF UNSPECIFIED SITE V720 EXAMINATION 10-03-2011 SCIFRES ANG OF EYES AND VISION 7862 COUGH 08-21-2011 [facility] 5110 PLEURISY 08-20-2011 [facility] WITHOUT [facility] MENTION INC EFFUS/CURRE NT TB 4778 ALLERGIC 05-08-2011 ARTIE RHINITIS PETER DUE TO OTHER ALLERGEN 76350 EXTRINSIC 05-08-2011 [facility] ASTHMA, [facility] UNSPECIFIED [...] ON TESTS 2449 UNSPECIFIED 03-27-2011 [facility] HYPOTHYROID [place]M 80714 OTHER SIGN 03-27-2011 A Mk ESCOTO AND SYMPTOM PSC IN BREAST 7831 ABNORMAL 03-27-2011 [facility] 6929 CONTACT 03-12-2011 A Mk ESCOTO DERMATITIS& MD PSC OTHER ECZEMA DUE UNSPEC CAUSE 27576 CONTACT AND 01-19-2010 [facility] ALLERGIC JR, J V DERMATITIS OF EYELID 462 ACUTE 01-16-2010 [facility] PHARYNGITIS JR, J V 4720 CHRONIC 01-16-2010 [facility] RHINITIS JR, J V 4871 INFLUENZA 07-28-2009 [facility] WITH OTHER JR, J V RESPIRATORY MANIFESTATI ONS 37490 FEVER 07-28-2009 [facility] UNSPECIFIED JR, J V 7841 THROAT PAIN 07-25-2009 [facility] 4739 UNSPECIFIED 07-05-2009 VIERA SINUSITIS JR, J V 3670 HYPERMETROP 06-09-2009 RAFAEL [place] VISION 51687 OTHER 05-09-2009 [facility] ABNORMAL JR, J V GLUCOSE 6111 HYPERTROPHY 04-29-2009 [facility] OF BREAST JR, J V V163 FAMILY 04-29-2009 [facility] HISTORY OF JR, J V MALIGNANT NEOPLASM OF BREAST 490 BRONCHITIS 03-01-2009 VI[facility]A NOT JR, J V SPECIFIED ACUTE OR CHRONIC 8921 OPEN WOUND 08-14-2008 [place] OF FOOT MEDICAL EXCEPT TOE [facility] COMPLICATED 8931 OPEN WOUND 08-14-2008 MAS OF TOE, [employer] E8490 PLACE OF 06-27-2008 [place] OCCURRENCE, [facility] E927 OVEREXERTIO 06-27-2008 [place] N&STRENUOUS MEDICAL &REPETITIVE [facility] MVMNTS/LOAD S V700 ROUTINE 05-09-2008 Aravind HILARIO JR, V MEDICAL EXAM@HEALTH CARE FACL 7881 DYSURIA 10-30-2007 Aravind VIERA JR, V Medications Na ND Rx Da Fi Fi [...] 3 00 CY H #0 23 32 PA 00 05 06 10 5 00 CV [...] M OF CY NT HI AN A 59 08 08 3 8. 20 EA 23 CO Ac 31 -0 -[address] 51 MM ti 00 2- 3- 0 SI 08 UN ve 57 20 20 DE IT 92 11 11 Y 0 PH AL AR LE MA RG CY Y & OF TH CY MA NT HI PS AN C A 00 08 08 6 30 30 EA 23 CO Ac 00 -0 -[address] 51 MM ti 60 2- 3- 00 SI 09 UN ve 11 20 20 DE IT 73 11 11 Y 1 PH AL AR LE MA RG CY Y & OF TH CY MA NT HI PS AN C A 00 08 08 6 0. 30 EA 23 MA Ac MA 08 -0 -[address] 51 SH ti NE 51 2- 3- 5 SI 07 BU ve X 46 20 20 DE RN TW 10 11 11 IS 2 PH AM TH AR Y AL MA B ER CY 11 OF 0 MC CY G NT #3 HI 0 AN A 59 08 08 3 8. [...] CY OF CY NT HI AN A CE 45 08 [...] CY BL NT ET HI AN A TR 00 08 08 [...] ME CY NT NT HI AN A PE 00 08 08 1 60 1 EA 23 MA Ac RM 47 -0 -[address] 51 SH ti ET 20 2- 2- 00 SI 04 BU ve HR 24 20 20 DE RN IN 26 11 11 0 PH AM 5% AR Y MA B CR CY EA M OF CY NT HI AN A CE 45 06 06 5 30 30 EA 22 MO Ac TI 80 -0 -[address] 83 SE ti RI 20 7- 7- 00 SI 64 S ve ZI [address] NE 98 11 11 EP 7 PH HE HC AR N L MA A 10 CY MG OF TA CY BL NT ET HI AN A ME 00 06 06 0 21 6 EA 22 MO Ac TH 78 -0 -[address] 83 SE ti YL 15 7- 7- 00 SI 65 S ve PA [address] ED 20 11 11 EP NI 7 PH HE SO AR N LO MA A NE CY 4 OF MG CY DO NT SE HI PK AN A VE 00 04 04 1 18 22 EA 17 CA Ac NT 17 -1 -[address] ti OL 30 3- 3- 00 SI 58 IL ve IN 68 20 20 DE LO 22 10 10 HF 0 PH JR A AR J 90 MA V CY MC G OF IN CALDWELL CY LE NT R HI AN A 00 04 04 1 30 30 EA 17 CA Ac 00 -1 -[address] ti 60 3- 3- 00 SI 59 IL ve 11 20 20 DE LO 73 10 10 1 PH JR AR J MA V CY OF CY NT HI AN A ME 00 12 12 00 21 6 EA 15 SO Ac TH 78 -1 -[address] 61 KA ti YL 15 7- 1- 00 SI 93 N ve PA 02 20 20 DE BA ED 20 [...] 1- 2- 00 SI 65 Av ve PA 02 20 20 DE ai ED 20 [...] CY OF CY NT HI AN A Procedures Procedure DOS Code Location Performer Comment INJ [id number] [facility] METHYLPRD 7 N N [facility]IS[facility] COMM[facility]TI[facility] COMMUNTIY SODIUM HOSPITA HOSPITA SUCCNAT TO 125 MG GROUND A0425 [facility] MILEAGE 7 N-ARY Aranda-ARY PER CO EMS CO EMS STATUTE MILE THER 63637 [facility] PROPH/DX 7 N N NJX IV COMMUNTIY COMMUNTIY PUSH HOSPITA HOSPITA SINGLE/1S T SBST/DRUG AMB A0427 [facility] SERVICE 7 N-ARY Aranda-ARY ALS CO EMS CO EMS EMERGENCY TRANSPORT LEVEL 1 RADIOLOGI 36331 [facility] [place] SCOTT C 7 RADIOLOGY EXAMINATI ON CHEST SINGLE VIEW FRONTAL MRI BRAIN 90304 [facility] [place] KOSTELIC BRAIN 7 RADIOLOGY STEM W/O W/CONTRAS T MATERIAL INJECTION A9579 [facility] 7 N N GADOLINIU COMMUNTIY COMMUNTIY M BASED HOSPITA [place] [address] [facility] PROLACTIN 7 [facility]CAR HEALTH[facility] [place] [address] [facility] TESTOSTER 7 HEALTHCAR HEALTHCAR ONE TOTAL E E HOSPITALS HOSPITALS HEMOGLOBI 91770 [facility] UK N 7 HEALTHCAR HEALTHCAR GLYCOSYLA E E LILY A1C [facility] [place] [address] [facility] HYDROXYPR 7 HEALTHCAR HEALTHCAR OGESTERON E E E 17-D HOSPITALS [facility] DEHYDROEP 91965 [facility] IANDROSTE 7 HEALTHCAR HEALTHCAR MADONNA-SULF E E ATE [facility] [place] [address] [facility] PROLACTIN 7 [facility] [place] [address] [place] [facility] INSULIN 7 [facility] [place] [address] [place] [facility] FREE 7 HEALTHCAR [facility]ALTHCAR THYROX[place] [address] [facility] THYROID 7 HEALTHCAR HEALTHCAR STIMULATI E E NG HOSPITALS [facility] HORMONE TSH URINE 24420 [facility] 7 MEDICAL TEST SERV VISUAL FOUNDATIO COLOR N CMPRSN METHS GONADOTRO 61126 [facility] PIN 7 HEALTHCAR HEALTHCAR FOLLICLE E E STIMULATI [facility] NG HORMONE BLOOD 97680 [facility] COUNT 7 HEALTHCAR HEALTHCAR COMPLETE E E AUTOMATED HOSPITALS HOSPITALS GONADOTRO 01961 [facility] PIN 7 HEALTHCAR HEALTHCAR CHORIONIC E E HOSPITALS HOSPITALS QUANTITAT AGUSTIN PREDNISON J7512 [facility] E 6 N N IMMEDIATE COMMUNTIY COMMUNTIY HOSPITA HOSPITA RLSE/PRIETO MONTOYAD RLSE ORAL 1 MG FITTING 77114 RODRIGUEZ MALA RODRIGUEZ MALA SPECTACLE 6 S XCPT APHAKIA MONOFOCAL SCRATCH V2760 [facility] RODRIGUEZ MALA RESISTANT 6 COATING PER LENS LENS V2784 [facility] RODRIGUEZ MALA POLYCARBO 6 ASHIA OR EQUAL ANY INDEX PER LENS FRAMES V2020 [facility] VINCENTNES MALA PURCHASES 6 1 VISN V2103 RODRIGUEZNEYDA VINCENTNES MALA PLANO 6 TO+/-4.00 D SPHER 0.12-2.00 D CYL EA SCRATCH V2760 RODRIGUEZNEYDA VINCENTNES MALA RESISTANT 6 COATING PER LENS LENS V2784 RODRIGUEZ MALA RODRIGUEZ MALA POLYCARBO 6 ASHIA OR EQUAL ANY INDEX PER LENS FRAMES V2020 [facility] MALA RODRIGUEZ MALA PURCHASES 6 SPHERE V2100 [facility]RIG[facility] MALA VINCENTNES MALA SINGLE 6 VISION PLANO +/- 4.00 PER LENS FITTING 52492 RODRIGUEZNEYDA MEDEIROS RODRIGUEZ MALA SPECTACLE 6 S XCPT APHAKIA MONOFOCAL OPHTH 11529 RODRIGUEZ MALA RODRIGUEZ MALA MEDICAL 6 XM&EVAL COMPRHNSV ESTAB PT 1/> RADEX 36484 [facility] 6 SALVATORE SUMAYA MINIMUM 3 EMERGENCY VIEWS SERV APPLICATI 28037 [facility] ON FINGER 6 N N SPLINT COMMUNTIY COMMUNTIY STATIC HOSPITA HOSPITA IAADI 68407 [facility] INFLUENZA 5 MEM HOS[facility] MEM HOSP B VIRUS INC INC IAADI 55750 [facility] INFFLUENZ 5 [facility] MEM [facility]OS[facility] A A VIRUS INC INC RADIOLOGI 81598 [facility] C EXAM 5 [facility] HOS[facility]OS[facility] CHEST 2 INC INC VIEWS FRONTAL&L ATERAL RADEX 16073 [facility] HAND 5 [facility]OS[facility] MINIMUM 3 INC INC VIEWS THERAPEUT 28787 [facility] IC 4 [facility] INJECTION [place] [address] [facility] INFUSION 4 [facility] THERAPY/P INC INC ROPHYLAXI S /DX 1ST TO 1 [place] [address] [facility] ABDOMINAL 4 [facility] REAL INC INC TIME W/IMAGE LIMITED COMPREHEN 58758 [facility] SIVE 4 [facility] METABOLIC INC INC PANEL URNLS DIP 83022 [facility] 4 [facility] STICK/TAB INC INC LET REAGENT AUTO MICROSCOP Y INJECTION J2405 [facility] 4 [facility] ONDANSETR INC INC ON HCL PER 1 [place] [address] [facility] AMYLASE 4 [facility] H[facility]OS[facility] INC INC BLOOD 44000 [facility] COUNT 4 MEM H[facility] MEM HOSP COMPLETE INC INC AUTO&[place] [address] [facility] M[facility] LIPASE 4 [facility] H[facility] HOSP INC INC IMMUNOASS 63773 [facility] AY NFCT 4 MEM H[facility] AGT ANTB INC INC QUAL/[place] [address] [place] [address] CARMEN CARMEN ABDOMEN & 4 VIELKA VIELKA PELVIS W/O CONTRAST MATERIAL BLOOD 72078 [facility] COUNT 4 [facility] COMPLETE INC INC AUTO&AUTO DIFRNTL WBC URINE 95974 [facility] 4 [facility] TEST INC INC VISUAL COLOR CMPRSN METHS LOCM Q9967 [facility] 300-399 4 [facility] H[facility] MG/ML INC INC IODINE CONCENTRA TION PER ML RADEX ABD 95745 [facility] COMPL 4 [facility] AQT ABD INC INC W/S/E/D VIEWS 1 VIEW CH 3D 88889 [facility] RENDERING 4 [facility] INC INC W/INTERP& POSTPROC DIFF WORK STATION THERAPEUT 87829 [facility] IC 4 [facility] PROPHYLAC INC INC TIC/DX INJECTION SUBQ/IM THER 54414 [facility] PROPH/DX 4 [facility] NJX EA INC INC SEQL IV PUSH SBST/DRUG FAC COMPREHEN 65453 [facility] SIVE 4 [facility] METABOLIC INC INC PANEL INJECTION J2405 [facility] 4 [facility] MEM HOSP ONDANSETR INC INC ON HCL PER 1 MG THERAPEUT 07288 [facility] IC 4 [facility] INJECTION INC [place] [address] [facility] INFUSION 4 [facility] THERAPY/P INC INC ROPHYLAXI S /DX 1ST TO 1 HR URNLS DIP 59902 [facility] 4 [facility] STICK/TAB INC [place] [address] [facility] ABDOMEN & 4 [facility] PELVIS INC INC W/CONTRAS T MATERIAL CONTRACEP A4267 [facility] TIVE 4 [facility] DISTRICT SUPPLY [facility] DE[facility] CONDOM NESSA NESSA MALE EACH IADNA 94892 [facility] NEISSERIA 4 [facility] DEPT [facility] DEPT GONORRHOE [facility] AE AMPLIFIED PROBE TQ IADNA 38529 [facility]IA [facility] TRACHOMAT [facility] IS AMPLIFIED PROBE TQ CONTRACEP S4993 [facility] TIVE 4 [facility] FOR [facility] DE[facility] CONTROL URINE 95964 [facility] 4 DISTRICT DISTRICT TEST [facility] DEPT [facility]PT VISUAL [facility] COLOR CMPRSN METHS IAADIADOO 48924 [facility] [place] 3 INFLUENZA RADEX 64851 [facility] CARMEN WRIST 2 2 VIELKA VIELKA VIEWS RADEX 60494 [facility] FOOT 2 [facility] COMPLETE INC INC MINIMUM 3 VIEWS FITTING 99285 SCIFRES SCIFRES SPECTACLE 1 ANG ANG S XCPT APHAKIA MONOFOCAL DETERMINA 80742 SCIFRES SCIFRES TION 1 ANG ANG REFRACTIV E STATE OPHTH 18016 SCIFRES SCIFRES MEDICAL 1 ANG ANG XM&EVAL COMPRHNSV ESTAB PT 1/> FRAMES V2020 SCIFRES SCIFRES PURCHASES 1 ANG ANG 1 VISN V2103 SCIFRES SCIFRES PLANO 1 ANG ANG TO+/-4.00 D SPHER 0.12-2.00 D CYL EA RADIOLOGI 35886 [facility] Terrazas EXAM 1 [facility] CHEST 2 INC INC VIEWS FRONTAL&L ATERAL URNLS DIP 43950 [facility] MATT 1 [facility] STICK/TAB INC INC LET REAGENT AUTO MICROSCOP Y BASIC 46069 [facility] METABOLIC 1 [facility] PANEL INC INC CALCIUM TOTAL IAADI 37157 [facility] INFLUENZA 1 [facility] B VIRUS INC INC BLOOD 36771 [facility] COUNT 1 [facility] COMPLETE INC INC AUTO&AUTO DIFRNTL WBC URINE 84331 [facility]ATT 1 [facility] TEST INC INC VISUAL COLOR CMPRSN METHS CULTURE 16693 [facility] BACTERIAL 1 [facility] INC INC QUANTTATI VE COLONY COUNT URINE IAADI 11684 [facility] M[facility] INFFLUENZ 1 [facility] A A VIRUS INC INC ALLERGEN 18871 [facility] SPECIFIC 1 [facility] IGE INC INC GLORIA/SEMI GLORIA EA ALLERGEN PREPJ& 50769 ARTIE ARTIE ALLERGEN 1 [facility] IMMUNOTHE RAPY 1/DRAPERY 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 ANTIGEN DEMO&/LAILA 61531 ARTIE ARTIE L OF PT 1 [facility] UTILIZ AERSL GEN/NEB/I NHLR/IP BRNCDILAT 17772 ARTIE ARTIE RSPSE 1 [facility] SPMTRY PRE&POST- BRNCDILAT ADMN PERCUTANE 74564 ARTIE ARTIE OUS TESTS 1 [facility] W/[place] [address] [facility] PROLACTIN 1 [place] [address] [facility] THYROID 1 [facility] [place] [address] [facility]IRTI M[facility] STREPTOCO 9 [facility] [place] [address] [facility] THYROID 9 [facility] STIMULATI INC INC NG HORMONE TSH FITTING 30431 RAFAEL SIMONEFRELMA, SPECTACLE 9 VISION JIMMIE M S XCPT APHAKIA MONOFOCAL OPHTH 75387 RAFAEL ALBRIGHT, MEDICAL 9 VISION JIMMIE M XM&EVAL COMPRHNSV ESTAB PT 1/> SPHERE V2100 RAFAEL ALBRIGHT, SINGLE 9 VISION JIMMIE M VISION PLANO +/- 4.00 PER LENS FRAMES V2020 RAFAEL ALBRIGHT, PURCHASES 9 [place] [address] VERNELL MATT THYROXINE 9 [facility] [place] [address] VERNELL MATT ESTROGENS 9 [facility] INC GONADOTRO 46444 VERNELL MATT PIN 9 [facility] FOLLICLE INC INC STIMULATI NG HORMONE THYROID 61818 VERNELL MATT HORM 9 [facility] UPTK/THYR INC INC OID HORMONE BINDING RATIO GLUCOSE 46383 VERNELL MATT QUANTITAT 9 [facility] AGUSTIN BLOOD [place] [address] VERNELL MATT THYROID 9 [facility] STIMULATI [place] [address] VERNELL MATT STREPTOCO 9 [facility] CCUS INC INC GROUP A AVULSION [address] NAIL [address] [facility] CORPORATI PARTIAL/C ON OMPLETE SIMPLE 1 RADIOLOGI 67020 VERNELL MATT C 8 [facility] EXAMINATI INC INC ON FOOT 2 VIEWS INCI 8605 VERNELL MATT W/REMOVAL 8 [facility] INC INC FB/DEVICE FROM SKIN & SUBQ TISSUE RADEX 91658 [place] JENNIFER, ANKLE 8 MEDICAL EMILIE Boyer COMPLETE IMAGING MINIMUM 3 ASSOCIATE VIEWS S IADNA 24175 Elaine ESCOTO, Elaine STREPTOCO 8 JEVON Terrazas CCUS PSC GROUP A QUANTIFIC ATION URNLS DIP 47340 VERNELL MATT 8 [facility] STICK/TAB INC INC LET REAGENT AUTO MICROSCOP Y Encounters Encounter Start End Date Code Location Performer Type Date EMERGENCY 52688 [facility] 7 7 [place] LO DEPARTMEN EMERGENCY T VISIT SERVI MODERATE SEVERITY [facility] [place] [address] 7 N OUTPATIEN COMMUNTIY T HOSPITA EMERGENCY 25974 [facility] 7 7 N DEPARTMEN COMMUNTIY T VISIT HOSPITA LIMITED/M INOR [facility] [place] [address] 7 N OUTPATIEN COMMUNTIY T HOSPITA EMERGENCY 46248 [facility] 7 7 [place] DEPARTMEN EMERGENCY T VISIT PHYS HIGH/URGE NT SEVERITY [facility] 7 7 N OUTPATIEN COMMUNTIY T HOSPCRITICAL [facility]ESS [facility] - 7 7 [facility]ALTH[facility] OUTPATIEN E T HOSPITALS OFFICE [address]00 [place] [facility] 7 7 MEDICAL T NEW 20 SERV MINUTES [facility] - [facility] - 6 6 N OUTPATIEN COMMUNTIY T HOSPITA EMERGENCY 33596 [facility] 6 6 [place] SCO DEPARTMEN EMERGENCY T VISIT PHYS MODERATE SEVERITY HOSPITAL [facility] - 6 6 N OUTPATIEN COMMUNTIY T HOSPITA EMERGENCY 68171 [facility] Jen [employer] 6 6 [place] SUMAYA DEPARTMEN EMERGENCY T VISIT SERV HIGH/URGE NT SEVERITY EMERGENCY 90262 KYLE TIAN 5 5 PHYSICIAN GA[facility] S, [facility] T VISIT MODERATE SEVERITY HOSPITAL VERNELL - 5 5 [facility] OUTPATIEN INC T EMERGENCY 27565 VERNELL 5 5 [facility] V[facility]/M [facility] VERNELL - 5 5 [facility] OUT[facility]IEN INC T EMERGENCY 76511 [facility] 5 [facility] L[facility]/MODER SEVERITY EMERGENCY 37220 [facility] 5 5 [facility]PART[facility] INC T VISIT LOW/MODER SEVERITY [facility] - 5 5 [facility] OUTPATIEN INC T OFFICE 03140 [facility] JUAN ALBERTO OUTPATIEN 5 5 PHYSICIAN SHERRELL T VISIT S GROUP 15 MINUTES OFFICE 68368 Elaine BEARD VIRGINIA OUTPATIEN 5 5 JEVON REYNA T VISIT [facility] 15 MINUTES OFFICE 52484 [facility] JUAN ALBERTO OUTPATIEN 4 4 PHYSICIAN SHERRELL T VISIT S GROUP 15 MINUTES EMERGENCY 21619 [facility] VER[facility] 4 4 [facility] EMERGENCY T VISIT PHYS HIGH/URGE NT SEVERITY [facility]OSP[facility] - 4 4 [facility] INC T EMERGENCY 50057 ISAAC GRAY DEPT 4 4 DORINA DORINA VISIT HIGH SEVERITY& THREAT [facility] - 4 4 [facility] OUT[facility] INC T EMERGENCY 28896 [facility] 4 4 [facility]IGH/URGE NT SEVERITY EMERGENCY 82395 LILIANA VIRGINIA LILIANA VIRGINIA DEPT 4 4 VISIT HIGH SEVERITY& THREAT [facility] - 4 4 [facility] T OFFICE 53267 FIELD AMB FIELD AMB OUTPATIEN 4 4 T VISIT 15 MINUTES PERIODIC 28246 [facility] DEPT [facility] DEPT PATIENT NESSA NESSA 18-39 YRS OFFICE 74752 [facility] OUTPATIEN 3 3 T VISIT 15 MINUTES OFFICE 74546 [facility] OUTPATIEN 2 2 T VISIT 15 MINUTES OFFICE 20587 MAGYPERENA BHATTIPERENA OUTPATIEN 2 2 SULEIMAN BEARDEN T VISIT 15 MINUTES OFFICE 95691 [place] [place] OUTPATIEN 2 2 [facility] MIN[facility] HEAL HEAL OFFICE 86279 [facility] OUTPATIEN 2 2 T VISIT 15 MINUTES [facility] 2 [facility] - [facility] 2 [facility] T OFFICE 71423 [facility] OUTPATIEN 2 2 T VISIT 25 MINUTES OFFICE 36853 [facility] 2 2 [facility] T VISIT 15 MINUTES OFFICE 67732 [facility] OUTPATIEN 2 2 T VISIT 15 MINUTES [facility]OSP[facility] - 1 1 [facility] OUTPATIEN INC T EMERGENCY 03432 [facility] 1 1 [facility] T VISIT HIGH/URGE NT SEVERITY [facility] - 1 1 [facility] OUT[facility] T OFFICE 40901 ARTIE ARTIE CONSULTAT 1 1 PETER GREEN ION NEW/ESTAB PATIENT 60 MIN OFFICE 51610 A Mk Henry OUTPATIEN 1 1 JEVON REYNA T VISIT PSC 15 MINUTES OFFICE 49877 A Mk Henry OUTPATIEN 1 1 JEVON REYNA T NEW 20 PSC MINUTES OFFICE 39243 AYLIN VIERA OUTPATIEN 0 0 JR, J V JR, J Taya T VISIT 15 MINUTES OFFICE 45167 VIERA VIERA OUTPATIEN 0 0 Aravind RAMIREZ JR, J V T VISIT 15 MINUTES EMERGENCY 08104 [facility] 9 9 [facility] DEPARTMEN INC T VISIT LIMITED/M INOR PROB [facility]OS[facility] - 9 9 [facility]PATIEN INC T OFFICE 39427 VIERA VIERA OUTPATIEN 9 9 Aravind RAMIREZ JR, J V T VISIT 15 MINUTES OFFICE 34180 VIERA VIERA OUTPATIEN 9 9 Aravind RAMIREZ JR, J V T VISIT 15 MINUTES [facility]OS[facility] - 9 9 [facility] T HOSPITAL [facility] - 9 9 [facility] OUTPATIEN INC T OFFICE 80202 VIERA VIERA OUTPATIEN 9 9 Aravind RAMIREZ JR, J V T VISIT 15 MINUTES OFFICE 49499 VIERA VIERA OUTPATIEN 9 9 Aravind RAMIREZ JR, J V T VISIT 15 MINUTES [facility]OSP[facility] - 9 9 [facility]IEN INC T OFFICE 15048 VIERA VIERA OUTPATIEN 9 9 Aravind RAMIREZ JR, J V T VISIT 15 MINUTES OFFICE 20081 VIERA VIERA OUTPATIEN 9 9 Aravind RAMIREZ JR, J V T VISIT 15 MINUTES [facility] - 9 9 [facility] INC T OFFICE 12035 VIERA VIERA OUTPATIEN 9 9 Aravind RAMIREZ JR, J V T VISIT 15 MINUTES OFFICE 97489 VIERA VIERA OUTPATIEN 9 9 Aravind RAMIREZ JR, J V T VISIT 15 MINUTES OFFICE 63307 VIERA VIERA OUTPATIEN 9 9 Aravind RAMIREZ JR, J V T VISIT 15 MINUTES EMERGENCY 08484 CHACE MIMS, 8 8 [facility] VISIT ON MODERATE SEVERITY EMERGENCY 02626 [facility] 8 8 [facility] T VISIT LOW/MODER SEVERITY [facility]OS[facility] - 8 8 [facility] T HOSP[facility] - 8 8 [facility] OUTPATIEN INC T EMERGENCY 21736 [facility] 8 8 [facility] T VISIT MODERATE SEVERITY OFFICE 10765 AYLIN VIERA OUTPATIEN 8 8 Aravind RAMIREZ JR, J V T VISIT 15 MINUTES PERIODIC 55135 AYLIN VIERA PREVENTIV 8 8 Aravind RAMIREZ JR, J V E MED EST PATIENT 12-17YRS OFFICE 77871 Elaine TEIXEIRA 8 8 JEVON Terrazas T VISIT PSC 15 MINUTES HOSPITAL [facility] - 8 8 [facility] OUTPATIEN [facility] T EMERGENCY 19757 [facility] 8 8 [facility] T VISIT LIMITED/M INOR PROB EMERGENCY 13486 [facility] CERNA, 8 8 [facility] T VISIT PROF SERV LOW/MODER SEVERITY OFFICE 08471 AYLIN VIERA OUTPATIEN 8 8 Aravind RAMIREZ JR, J V T VISIT 15 MINUTES [facility]OSPITAL [facility] - 8 8 [facility] INC T OFFICE 97082 AYLIN VIERA OUTPATIEN 8 8 Aravind RAMIREZ JR, J V T VISIT 15 MINUTES
--- OUTSIDE RECORDS SUMMARY | 2017-07-20 06:31 | External Medical Summary Rpt ---
Author Author CHICO Moore, [employer] Address Unknown Phone Unavailable
--- OUTSIDE RECORDS SUMMARY | 2017-07-20 06:31 | External Medical Summary Rpt | CCD ---
Author Author , CHICO GOLDEN Address Unknown Phone [email or web address] Immunization Name Date Rout CVX Reac Dose Comm Prov Is Faci e tion ent ider Refu lity Give sed n Tdap 07-2 115 999 Hist H149 No H149 , 7-20 [facility] Adso 07 al rbed Info rmat ion - Sour ce Unsp ecif ied
--- OUTSIDE RECORDS SUMMARY | 2017-07-20 06:31 | External Medical Summary Rpt | CCD ---
Author Author , CHICO GODLEN Address Unknown Phone [email or web address] Care Team Providers Care Assembly Machine Operator Name Role Phone A Mk ESCOTO MD PSC, Elaine Unavailable Unavailable Mk ESCOTO MD PSC BEAVEN, BEAVEN Unavailable Unavailable VIERA JR, J V, Unavailable Unavailable VIERA JR, J V AVENDANO SHERRELL, AVENDANO Unavailable Unavailable SHERRELL [facility], Unavailable Unavailable [facility] CARMEN VIELKA, Unavailable Unavailable CARMEN VIELKA CARMEN VIELKA, Unavailable Unavailable CARMEN VIELKA TIAN MAT, TIAN Unavailable Unavailable [facility] [place] [facility] [place] [facility] [facility], RAS[facility]EDA Unavailable Unavailable [facility] Unavailable Unavailable [facility], [facility] AMB Unavailable Unavailable [facility], [facility] AM[facility] Unavailable Unavailable BANEGAS, BANEGAS Unavailable Unavailable ISAAC DORINA, ISAAC Unavailable Unavailable DORINA [facility] Unavailable Un[facility], [facility] Un[facility], [facility] Unavailable Unavailable [facility], [facility] SCOTT, SCOTT Unavailable Unavailable [facility], Unavailable Unavailable [facility] Un[facility], [facility] Unavailable Unavailable HOSPITAL P, [facility] RODRIGUEZ MALA, RODRIGUEZ MALA Unavailable Unavailable RODRIGUEZ MALA, RODRIGUEZ MALA Unavailable Unavailable [facility], Unavailable Unavailable [facility] Unavailable Unavailable [facility], [facility] KILPELA JEA, KILPELA Unavailable Unavailable JEA KILPELA JEA, KILPELA Unavailable Unavailable JEA KOSTELIC, KOSTELIC Unavailable Unavailable [facility], Unavailable Unavailable [facility], Unavailable Unavailable [facility] ARTIE PETER, Unavailable Unavailable ARTIE PETER [...] GONZALEZ Mandujano [facility], [facility] Un[facility], [facility] Unavailable Unavailable EMERGENCY SERVI, [facility] Unavailable [facility]available HOSPITALS, [facility] Unavailable [facility]available DE[facility] Unavailable [facility]available DEPT [facility] DEPT [facility] YUMI MIMS, Unavailable Unavailable [facility] M[facility], JEVON Henry Unavailable Unavailable Elaine ESCOTO, JEVON, Unavailable Unavailable Elaine C Purpose Continuity of Care Document - 10-30-2007 through 2016 Problems Code Diagnosis DOS Provider Status [id number] UNSPECIFIED 03-25-2017 [facility] ED L559 [place] 03-25-2017 [facility] UNSPECIFIED N EMERGENCY SERVI R220 LOCALIZED 03-25-2017 [facility] EMERGENC[facility] MASS AND SERVI [place] HEAD R600 LOCALIZED 03-25-2017 [facility] Z880 ALLERGY 03-25-2017 [facility] STATUS TO [facility]TI[facility] [place] HOSPITA R05 COUGH 02-19-2017 [facility] R079 CHEST PAIN 02-19-2017 [facility]- [facility]PECIFIED [facility] R091 PLEURISY 02-19-2017 [facility] N EMERGENCY PHYS R509 FEVER 02-19-2017 [facility] [place] [facility]PEC[facility] RADIOLOGY E221 HYPERPROLAC 12-31-2016 [facility] N926 IRREGULAR 12-19-2016 [facility] UNSPECIFIED R1031 RIGHT LOWER 12-13-2016 [facility] HOSPIT[facility] Z3202 ENCOUNTER 12-13-2016 [facility] TEST RESULT NEGATIVE Z789 OTHER 12-13-2016 [facility] STATUS [id number] PAIN IN 03-22-2016 [facility] LEFT WRIST N EMERGENCY PHYS Z720 TOBACCO USE 03-22-2016 [facility] HOSP[facility] H5213 MYOPIA 11-28-2015 RODRIGUEZ MALA BILATERAL G33538 PAIN IN 11-06-2015 [facility] [place] [facility] [id number] CONTUSION 11-06-2015 [facility] RT MIDDLE N EMERGENCY FINGER W/O SERV DAMAGE NAIL INIT [id number] STRIKING 11-06-2015 [facility] AGAINST/STR N EMERGENCY UCK OTH SERV OBJECTS INITIAL ENC R21 RASH AND 10-04-2015 [facility] OTHER PHYSICIANS, NONSPECIFIC PLLC SKIN ERUPTION J069 ACUTE UPPER 09-01-2015 [facility] INC INFECTION UNSPECIFIED R0989 OTH SPEC SX 09-01-2015 [place] [facility] IN[facility] THE IMAGING ASS CIRC & RESP SYS R1110 VOMITING 09-01-2015 [place] UNSPECIFIED [facility]ICAL IM[facility]ING ASS 29005 ASTHMA, 12-19-2014 [facility] UNSPECIFIED [facility] , INC UNSPECIFIED STATUS 44969 SPRAIN AND 12-19-2014 [facility] STRAIN OF [facility] P GEAL OF HAND 9595 INJURY 12-19-2014 [place] OTHER AND MEDICAL UNSPECIFIED IMAGING ASS FINGER E8494 PLACE OF 12-19-2014 [facility] OCCURRENCE [facility] P RECREATION AND SPORT E9170 STRIKE 12-19-2014 [facility] AGNST/STRUC [facility] P SPORTS W/O SUBSQT FALL V140 PERSONAL 12-19-2014 [facility] HISTORY OF [facility] ALLERGY TO [facility] P [place] 6264 IRREGULAR 12-06-2014 [facility] MENSTRUAL PHYSICIANS CYCLE GROUP V2509 OTH GENERAL 12-06-2014 [facility] PHYSICIANS CNSL&ADVICE GROUP CONTRACEPT MANAGEMENT V2549 SURVEILLANC 12-06-2014 [facility] E OT PREV PHYSICIANS PRSC GROUP CONTRACEPT METHOD 1110 PITYRIASIS 10-11-2014 A Mk SINCLAIR MD PSC 684 IMPETIGO 10-11-2014 A Mk ESCOTO MD PSC V259 UNSPECIFIED 09-21-2014 [facility] PHYSICIANS CONTRACEPTI GROUP VE MANAGEMENT 7840 HEADACHE 06-29-2014 [facility] N EMERGENCY PHYS 5758 OTHER 01-03-2014 CARMEN SPECIFIED VIELKA DISORDER OF GALLBLADDER 58745 ABDOMINAL 01-03-2014 [facility] PAIN RIGHT MEM HOSP UPPER INC QUADRANT 5589 OTH&UNSPEC 12-30-2013 [facility] [place] NONINFECTIO US GASTROENTER ITIS&COLITI S 5699 UNSPECIFIED 12-30-2013 CARMEN DISORDER VIELKA OF INTESTINE 5779 UNSPECIFIED 12-30-2013 CARMEN DISEASE OF VIELKA PANCREAS 6202 OTHER AND 12-30-2013 CARMEN UNSPECIFIED VIELKA OVARIAN CYST 14825 ABDOMINAL 12-30-2013 CARMEN PAIN, VIELKA UNSPECIFIED SITE 40045 OTHER 12-13-2013 FIELD AMB SPECIFIED TMJ DISORDERS V2501 GENERAL 11-16-2013 [facility] PRESCRIPTIO [facility] DEPT N ORAL NESSA CONTRACEPTS V2689 OTHER 11-16-2013 [facility] SPECIFIED DISTRICT PROCREATIVE [facility] DEPT MANAGEMENT NESSA 4660 ACUTE 12-01-2012 [facility] [place] BRONCHITIS 81591 ACUTE 12-01-2012 [facility] [place] BRONCHOSPAS M 7264 ENTHESOPATH 09-18-2012 [facility] [place] Y OF WRIST AND CARPUS 4619 ACUTE 08-21-2012 KIL[facility]LA JEA SINUSITIS, UNSPECIFIED V741 SCREENING 06-23-2012 [facility] EXAMINATION HIGH FOR SCHOOL HEAL PULMONARY TUBERCULOSI S 2382 NEOPLASM OF 04-14-2012 [facility] UNCERTAIN MEM HOS[facility] BEHAVIOR OF INC SKIN 11110 GANGLION OF 04-14-2012 [facility] [place] TENDON SHEATH 7822 LOCALIZED 04-14-2012 CARMEN SUPERFICIAL VIELKA SWELLING MASS OR LUMP 69381 GENERALIZED 02-13-2012 [facility] 59480 UNSPECIFIED 02-13-2012 [place] SITE OF ANKLE SPRAIN AND STRAIN 43192 SPRAIN AND 02-13-2012 [facility] [place] STRAIN OF UNSPECIFIED SITE OF FOOT 9599 INJURY 02-13-2012 [place] OTHER AND MEDICAL UNSPECIFIED IMAGING ASS UNSPECIFIED SITE 7821 RASH AND 11-28-2011 [facility] OTHER NONSPECIFIC SKIN ERUPTION 7847 EPISTAXIS 11-28-2011 [facility] 4659 ACUTE URIS 11-11-2011 [facility] OF UNSPECIFIED SITE V720 EXAMINATION 10-03-2011 [facility] ANG OF EYES AND VISION 7862 COUGH 08-21-2011 [facility] 5110 PLEURISY 08-20-2011 [facility] WITHOUT [facility] MENTION INC EFFUS/CURRE NT TB 4778 ALLERGIC 05-08-2011 ARTIE RHINITIS PETER DUE TO OTHER ALLERGEN 77628 EXTRINSIC 05-08-2011 [facility] ASTHMA, [facility] UNSPECIFIED [...] ON TESTS 2449 UNSPECIFIED 03-27-2011 [facility] HYPOTHYROID ISM 76190 OTHER SIGN 03-27-2011 A Mk ESCOTO AND SYMPTOM PSC IN BREAST 7831 ABNORMAL 03-27-2011 [facility] [facility] 6929 CONTACT 03-12-2011 A Mk ESCOTO DERMATITIS& MD PSC OTHER ECZEMA DUE UNSPEC CAUSE 92241 CONTACT AND 01-19-2010 [facility]ER[facility] ALLERGIC JR, J V DERMATITIS OF EYELID 462 ACUTE 01-16-2010 [facility] PHARYNGITIS JR, J V 4720 CHRONIC 01-16-2010 [facility] RHINITIS JR, J V 4871 INFLUENZA 07-28-2009 [facility] WITH OTHER JR, J V RESPIRATORY MANIFESTATI ONS 04468 FEVER 07-28-2009 [facility] UNSPECIFIED JR, J V 7841 THROAT PAIN 07-25-2009 [facility] 4739 UNSPECIFIED 07-05-2009 VIERA SINUSITIS JR, J V 3670 HYPERMETROP 06-09-2009 [facility] [place] VISION 38514 OTHER 05-09-2009 [facility] ABNORMAL JR, J V GLUCOSE 6111 HYPERTROPHY 04-29-2009 [facility] OF BREAST JR, J V V163 FAMILY 04-29-2009 [facility] HISTORY OF JR, J V MALIGNANT NEOPLASM OF BREAST 490 BRONCHITIS 03-01-2009 VIERA NOT JR, J V SPECIFIED ACUTE OR CHRONIC 8921 OPEN WOUND 08-14-2008 [place] OF FOOT MEDICAL EXCEPT TOE [facility] COMPLICATED 8931 OPEN WOUND 08-14-2008 MAS OF TOE, CADFORCE E8490 PLACE OF 06-27-2008 [place] OCCURRENCE, [facility] E927 OVEREXERTIO 06-27-2008 [place] N&STRENUOUS MEDICAL &REPETITIVE IMAG[facility] ASSOC[facility]ATES MVMNTS/LOAD S [...] 3 00 CY H #0 23 32 NM 00 05 06 10 5 00 CV [...] 7- 7- 00 SI 65 S ve NM [address] ED 20 [...] 7- 1- 00 SI 93 N ve NM 02 20 20 DE BA ED 20 [...] 1- 2- 00 SI 65 Av ve NM 02 20 20 DE ai ED 20 [...] DOS Code Location Performer Comment INJ J2930 [facility] METHYLPRD 7 N N NISOLONE COMMUNTIY COMMUNTIY SODIUM HOSPITA HOSPITA SUCCNAT TO 125 MG GROUND A0425 [facility] MILEAGE 7 N-ARY Aranda-ARY PER CO EMS CO EMS STATUTE MILE THER 41882 [facility] PROPH/DX 7 N N NJX IV COMMUNTIY COMMUNTIY PUSH HOSPITA HOSPITA SINGLE/1S T SBST/DRUG AMB A0427 [facility] SERVICE 7 N-ARY Aranda-ARY ALS CO EMS CO EMS EMERGENCY TRANSPORT LEVEL 1 RADIOLOGI 48653 [facility] [place] SCOTT C 7 RADIOLOGY EXAMINATI ON CHEST SINGLE VIEW FRONTAL MRI BRAIN 99096 [facility] [place] KOSTELIC BRAIN 7 RADIOLOGY STEM W/O W/CONTRAS T MATERIAL INJECTION A9579 [facility] 7 N N GADOLINIU COMMUNTIY COMMUNTIY M BASED HOSPITA [place] [address] [facility] PROLACTIN 7 [facility]CAR HEALTH[facility] [place] [address] [facility] TESTOSTER 7 HEALTHCAR HEALTHCAR ONE TOTAL E E HOSPITALS HOSPITALS HEMOGLOBI 11426 UK UK N 7 HEALTHCAR HEALTHCAR GLYCOSYLA E E LILY A1C [facility] [place] [address] UK UK HYDROXYPR 7 HEALTHCAR HEALTHCAR OGESTERON E E E 17-D HOSPITALS [facility] DEHYDROEP 55700 UK IANDROSTE 7 HEALTHCAR HEALTHCAR MADONNA-SULF E E ATE [facility] [place] [address] UK [facility] PROLACTIN 7 [facility] [place] [address] [place] [facility] INSULIN 7 [facility]CAR [facility] [place] [address] [place] UK FREE 7 HEALTHCAR [facility]ALTHCAR THYROX[place] [address] UK THYROID 7 HEALTHCAR HEALTHCAR STIMULATI E E NG HOSPITALS [facility] HORMONE TSH URINE 18709 [facility] CALDERON 7 MEDICAL TEST SERV VISUAL FOUNDATIO COLOR N CMPRSN METHS GONADOTRO 02931 [facility] PIN 7 HEALTHCAR HEALTHCAR FOLLICLE E E STIMULATI [facility] NG HORMONE BLOOD 08294 [facility] COUNT 7 HEALTHCAR HEALTHCAR COMPLETE E E AUTOMATED HOSPITALS HOSPITALS GONADOTRO 41839 UK PIN 7 HEALTHCAR HEALTHCAR CHORIONIC E E HOSPITALS HOSPITALS QUANTITAT AGUSTIN PREDNISON J7512 [facility] E 6 N N IMMEDIATE COMMUNTIY COMMUNTIY HOSPITA HOSPITA RLSE/PRIETO MONTOYAD RLSE ORAL 1 MG FITTING 02106 RODRIGUEZ MALA RODRIGUEZ MALA SPECTACLE 6 S XCPT APHAKIA MONOFOCAL SCRATCH V2760 RODRIGUEZ MALA RODRIGUEZ MALA RESISTANT 6 COATING PER LENS LENS V2784 RODRIGUEZ MALA RODRIGUEZ MALA POLYCARBO 6 ASHIA OR EQUAL ANY INDEX PER LENS FRAMES V2020 RODRIGUEZ MALA VINCENTNES MALA PURCHASES 6 1 VISN V2103 RODRIGUEZNEYDA VINCENTNES MALA PLANO 6 TO+/-4.00 D SPHER 0.12-2.00 D CYL EA SCRATCH V2760 RODRIGUEZNEYDA VINCENTNES MAAL RESISTANT 6 COATING PER LENS LENS V2784 RODRIGUEZ MALA RODRIGUEZ MALA POLYCARBO 6 ASHIA OR EQUAL ANY INDEX PER LENS FRAMES V2020 RODRIGUEZ MALA RODRIGUEZ MALA PURCHASES 6 SPHERE V2100 RODRIGUEZ MALA VINCENTNES MALA SINGLE 6 VISION PLANO +/- 4.00 PER LENS FITTING 09867 RODRIGUEZNEYDA MEDEIROS RODRIGUEZ MALA SPECTACLE 6 S XCPT APHAKIA MONOFOCAL OPHTH 68115 RODRIGUEZ MALA RODRIGUEZ MALA MEDICAL 6 XM&EVAL COMPRHNSV ESTAB PT 1/> RADEX 62391 [facility] HAND 6 SALVATORE SUMAYA MINIMUM 3 EMERGENCY VIEWS SERV APPLICATI 80876 [facility] ON FINGER 6 N N SPLINT COMMUNTIY COMMUNTIY STATIC HOSPITA HOSPITA IAADI 45880 [facility] MATT INFLUENZA 5 MEM HOSP MEM HOS[facility] B VIRUS INC INC IAADI 45046 [facility] INFFLUENZ 5 MEM HOSP MEM HOSP A A VIRUS INC INC RADIOLOGI 36610 [facility] C EXAM 5 MEM HOS[facility] HOS[facility] CHEST 2 INC INC VIEWS FRONTAL&L ATERAL RADEX 45875 [facility] HAND 5 [facility]OS[facility] MINIMUM 3 INC INC VIEWS THERAPEUT 10661 [facility] IC 4 [facility] INJECTION [place] [address] [facility] INFUSION 4 [facility] THERAPY/P INC INC ROPHYLAXI S /DX 1ST [place] [address] [facility] ABDOMINAL 4 [facility] REAL INC INC TIME W/IMAGE LIMITED COMPREHEN 22580 [facility] SIVE 4 [facility] METABOLIC INC INC PANEL URNLS DIP 95431 [facility] MATT 4 [facility] STICK/TAB INC INC LET REAGENT AUTO MICROSCOP Y INJECTION J2405 [facility] 4 [facility] H[facility] ONDANSETR INC INC ON HCL PER 1 [place] [address] [facility] AMYLASE 4 MEM HOS[facility] MEM HOS[facility] INC INC BLOOD 64310 [facility] COUNT 4 MEM H[facility] MEM HOSP COMPLETE INC INC AUTO&[place] [address] [facility] M[facility] LIPASE 4 MEM HOS[facility]OS[facility] INC INC IMMUNOASS 62029 [facility] AY NFCT 4 MEM HOS[facility] AGT ANTB INC INC QUAL/[place] [address] [address] [place] [address] CARMEN CARMEN ABDOMEN & 4 VIELKA VIELKA PELVIS W/O CONTRAST MATERIAL BLOOD 43163 [facility] COUNT 4 [facility] COMPLETE INC INC AUTO&AUTO DIFRNTL WBC URINE 30723 [facility] MATT 4 [facility] TEST INC INC VISUAL COLOR CMPRSN METHS LOCM Q9967 [facility] MATT [phone] 4 MEM HOS[facility] MG/ML INC INC IODINE CONCENTRA TION PER ML RADEX ABD 67461 [facility] COMPL 4 [facility] AQT ABD INC INC W/S/E/D VIEWS 1 VIEW CH 3D 46471 [facility] RENDERING 4 [facility] INC INC W/INTERP& POSTPROC DIFF WORK STATION THERAPEUT 56607 [facility] IC 4 [facility] PROPHYLAC INC INC TIC/DX INJECTION SUBQ/IM THER 77650 [facility] PROPH/DX 4 [facility] NJX EA INC INC SEQL IV PUSH SBST/DRUG FAC COMPREHEN 05891 [facility] SIVE 4 [facility] METABOLIC INC INC PANEL INJECTION J2405 [facility] MATT 4 [facility]OS[facility] ONDANSETR INC INC ON HCL PER 1 MG THERAPEUT 12021 [facility] IC 4 [facility] INJECTION [place] [address] [facility] INFUSION 4 [facility] THERAPY/P INC INC ROPHYLAXI S /DX 1ST TO 1 HR URNLS DIP 04695 [facility] MATT 4 [facility] STICK/TAB INC [place] [address] [facility] ABDOMEN & 4 MEM H[facility] PELVIS INC INC W/CONTRAS T MATERIAL CONTRACEP A4267 [facility] TIVE 4 DISTRICT DISTRICT SUPPLY [facility] DEPT [facility] DEPT CONDOM NESSA NESSA MALE EACH IADNA 81191 [facility] NEISSERIA [address] [facility] DEPT [facility] DEPT [facility] AE AMPLIFIED PROBE TQ IADNA 98382 [facility] CHLAMYDIA 4 [facility] DEPT TRACHOMAT [facility] IS AMPLIFIED PROBE TQ CONTRACEP S4993 [facility] TIVE [facility] DEPT [facility] CONTROL URINE 24977 [facility] 4 DISTRICT DISTRICT TEST [facility] DEPT [facility] DEPT VISUAL [facility] COLOR CMPRSN METHS IAADIADOO 80537 [facility] [place] [facility] [place] 3 INFLUENZA RADEX 02296 CARMEN CARMEN WRIST 2 2 VIELKA VIELKA VIEWS RADEX 08201 [facility] FOOT 2 [facility]OS[facility] COMPLETE INC INC MINIMUM 3 VIEWS FITTING 72096 SCIFRES SCIFRES SPECTACLE 1 ANG ANG S XCPT APHAKIA MONOFOCAL DETERMINA 84877 SCIFRES SCIFRES TION 1 ANG ANG REFRACTIV E STATE OPHTH 57651 SCIFRES SCIFRES MEDICAL 1 ANG ANG XM&EVAL COMPRHNSV ESTAB PT 1/> FRAMES V2020 SCIFRES SCIFRES PURCHASES 1 ANG ANG 1 VISN V2103 SCIFRES SCIFRES PLANO 1 ANG ANG TO+/-4.00 D SPHER 0.12-2.00 D CYL EA RADIOLOGI 25708 [facility] Terrazas EXAM 1 [facility] CHEST 2 INC INC VIEWS FRONTAL&L ATERAL URNLS DIP 25575 [facility] MATT 1 [facility] STICK/TAB INC INC LET REAGENT AUTO MICROSCOP Y BASIC 48198 [facility] METABOLIC 1 [facility] PANEL INC INC CALCIUM TOTAL IAADI 72302 [facility] INFLUENZA 1 [facility] B VIRUS INC INC BLOOD 23367 VERNELL VERNELL COUNT 1 [facility] COMPLETE INC INC AUTO&AUTO DIFRNTL WBC URINE 72759 [facility] MATT 1 [facility] TEST INC INC VISUAL COLOR CMPRSN METHS CULTURE 67343 [facility] BACTERIAL 1 [facility] INC INC QUANTTATI VE COLONY COUNT URINE IAADI 63958 [facility] INFFLUENZ 1 [facility] A A VIRUS INC INC ALLERGEN 46535 [facility] SPECIFIC 1 [facility] IGE INC INC GLORIA/SEMI GLORIA EA ALLERGEN PREPJ& 99225 ARTIE ARTIE ALLERGEN 1 PET[facility] GREEN IMMUNOTHE RAPY 1/TRIAGE REGISTER NURSE ANTIGEN DEMO&/LAILA 25013 ARTIE ARTIE L OF PT 1 [facility] UTILIZ AERSL GEN/NEB/I NHLR/IP BRNCDILAT 02417 ARTIE ARTIE RSPSE 1 [facility] SPMTRY PRE&POST- BRNCDILAT ADMN PERCUTANE 59718 ARTIE ARTIE OUS TESTS 1 [facility] GREEN W/[place] [address] [facility] PROLACTIN 1 [place] [address] [facility] THYROID 1 [facility] [place] [address] VERNELLKIRTI MATT STREPTOCO 9 [facility] [place] [address] [facility] MATT THYROID 9 [facility]OS[facility] STIMULATI INC INC NG HORMONE TSH FITTING 51728 RAFAEL SIMONEFRELMA, SPECTACLE 9 VISION JIMMIE M S XCPT APHAKIA MONOFOCAL OPHTH 54702 RAFAEL ALBRIGHT, MEDICAL 9 VISION JIMMIE M XM&EVAL COMPRHNSV ESTAB PT 1/> SPHERE V2100 RAFAEL ALBRIGHT, SINGLE 9 VISION JIMMIE M VISION PLANO +/- 4.00 PER LENS FRAMES V2020 RAFAEL ALBRIGHT, PURCHASES 9 [place] [address] [facility] MATT THYROXINE 9 [facility] [place] [address] [facility] M[facility] ESTROGENS 9 [facility] TOTAL INC INC GONADOTRO 97200 [facility] M[facility] PIN 9 [facility]OS[facility] FOLLICLE INC INC STIMULATI NG HORMONE THYROID 00240 [facility] HORM 9 [facility] UPTK/THYR INC INC OID HORMONE BINDING RATIO GLUCOSE 61592 [facility] QUANTITAT 9 [facility] H[facility] AGUSTIN BLOOD [place] [address] [facility] MATT THYROID 9 [facility] MEM [facility]OS[facility] STIMULATI [place] [address] [facility] M[facility] STREPTOCO 9 [facility] CCUS INC INC GROUP A AVULSION 87339 [facility]ACE FELICITA NAIL 8 [facility] CORPORATI PARTIAL/C ON OMPLETE SIMPLE 1 RADIOLOGI 86861 [facility] C 8 [facility] EXAMINATI INC INC ON FOOT 2 VIEWS INCI 8605 [facility] W/REMOVAL 8 [facility] INC INC FB/DEVICE FROM SKIN & SUBQ TISSUE RADEX 49224 [place] JENNIFER, ANKLE 8 MEDICAL EMILIE Boyer COMPLETE IMAGING MINIMUM 3 ASSOCIATE VIEWS S IADNA 98930 Elaine ESCOTO, Elaine STREPTOCO 8 JEVON Terrazas CCUS PSC GROUP A QUANTIFIC ATION URNLS DIP 24275 [facility] MATT 8 [facility] STICK/TAB INC INC LET REAGENT AUTO MICROSCOP Y Encounters Encounter Start End Date Code Location Performer Type Date EMERGENCY 97843 [facility] 7 7 SALVATORE LO DEPARTMEN EMERGENCY T VISIT SERVI MODERATE SEVERITY [facility] [place] [address] 7 N OUTPATIEN COMMUNTIY T HOSPITA EMERGENCY 70380 [facility] 7 7 N DEPARTMEN COMMUNTIY T VISIT HOSPITA LIMITED/M INOR [facility] [place] [address] 7 N OUTPATIEN COMMUNTIY T HOSPITA EMERGENCY 02287 [facility] 7 7 [place]VAT[place] DEPARTMEN EMERGENCY T VISIT PHYS HIGH/URGE NT SEVERITY [facility]OS[facility] 7 7 N [facility] 7 HEALTHCAR OUTPATIEN E T HOSPITALS OFFICE [address] [place] [facility] 7 MEDICAL T NEW 20 SERV MINUTES [facility] - 7 7 HEALTHCAR OUTPATIEN E [facility] - 6 6 N OUTPATIEN COMMUNTIY T HOSPITA EMERGENCY 50173 [facility] AL[facility] 6 6 SAL[place]ATORE SCO DEPARTMEN EMERGENCY T VISIT PHYS MODERATE SEVERITY HOSPITAL [facility] - 6 6 N OUTPATIEN COMMUNTIY T HOSPITA EMERGENCY 06618 [facility] Jen [employer] 6 6 SALVATORE SUMAYA DEPARTMEN EMERGENCY T VISIT SERV HIGH/URGE NT SEVERITY EMERGENCY 04276 KYLE TIAN 5 5 PHYSICIAN GAURI [facility] T VISIT MODERATE SEVERITY HOSPITAL [facility] - 5 5 [facility] OUTPATIEN INC T EMERGENCY 19101 [place] 5 5 [facility] V[facility]/M [facility] - 5 5 [facility] OUTPATIEN INC T EMERGENCY 52693 [facility] 5 [facility] LOW/MODER SEVERITY EMERGENCY 44462 VERNELL 5 5 [facility] DEPARTMEN INC T VISIT LOW/MODER SEVERITY HOSPITAL VERNELL - 5 5 [facility] OUTPATIEN INC T OFFICE 29575 [facility] JUAN ALBERTO OUTPATIEN 5 5 PHYSICIAN SHERRELL T VISIT S GROUP 15 MINUTES OFFICE 82968 Elaine [facility] [place] OUTPATIEN 5 5 JEVON REYNA T VISIT [facility] 15 MINUTES OFFICE 14613 [facility] JUAN ALBERTO OUTPATIEN 4 4 PHYSICIAN SHERRELL T VISIT S GROUP 15 MINUTES EMERGENCY 31190 [facility] VERNELL 4 4 SALVATORE [facility] EMERGENCY T VISIT PHYS HIGH/URGE NT SEVERITY HOSPITAL VERNELL - 4 4 [facility] OUTPATIEN INC T EMERGENCY 75867 ISAAC GRAY DEPT 4 4 DORINA DORINA VISIT HIGH SEVERITY& THREAT [facility] VERNELL - 4 4 [facility] OUTPATIEN INC T EMERGENCY 11190 VERNELL 4 4 [facility]ISIT HIGH/URGE NT SEVERITY EMERGENCY 77548 [facility] [place] [facility] [place] DEPT 4 4 VISIT HIGH SEVERITY& THREAT [facility] VERNELL - 4 4 [facility] OUTPATIEN INC T OFFICE 03172 FIELD AMB FIELD AMB OUTPATIEN 4 4 T VISIT 15 MINUTES PERIODIC 39973 [facility] EST TH [facility]PT [facility] DEPT PATIENT NESSA NESSA 18-39 YRS OFFICE 10738 [facility] OUT[facility] 3 3 T VISIT 15 MINUTES OFFICE 13770 [facility] 2 2 T VISIT 15 MINUTES OFFICE 36313 MAGYPERENA BHATTIPERENA OUTPATIEN 2 2 SULEIMAN BEARDEN T VISIT 15 MINUTES OFFICE 69834 [facility] [place] OUTPATIEN 2 2 [facility] MINUTES HEAL HEAL OFFICE 88181 [facility] 2 2 T VISIT 15 MINUTES [facility] T OFFICE 68959 [facility] OUTPATI[facility] 2 2 T VISIT 25 MINUTES OFFICE 87819 [facility] 2 2 [facility] 15 MINUTES OFFICE 43368 [facility] CO[facility] OUTPATIEN 2 2 T VISIT 15 MINUTES [facility]OSP[facility] - 1 1 [facility] OUTPATIEN INC T EMERGENCY 54086 [facility] 1 [facility] VISIT HIGH/URGE NT SEVERITY [facility] T OFFICE 74975 ARTIE ARTIE CONSULTAT 1 1 PETER GREEN ION NEW/ESTAB PATIENT 60 MIN OFFICE 16313 A Mk Henry OUTPATIEN 1 1 JEVON REYNA T VISIT PSC 15 MINUTES OFFICE 33159 A Mk Henry OUTPATIEN 1 1 JEVON REYNA T NEW 20 PSC MINUTES OFFICE 95740 AYLIN VIERA OUTPATIEN 0 0 JR, J V JR, J Taya T VISIT 15 MINUTES OFFICE 92116 VIERA VIERA OUTPATIEN 0 0 Aravind RAMIREZ JR, J V T VISIT 15 MINUTES EMERGENCY 92832 [facility] 9 9 [facility] DEPARTMEN INC T VISIT LIMITED/M INOR PROB HOSPITAL [facility] - 9 9 [facility] OUTPATIEN INC T OFFICE 13706 VIERA VIERA OUTPATIEN 9 9 Aravind RAMIREZ JR, J V T VISIT 15 MINUTES OFFICE 02869 VIERA VIERA OUTPATIEN 9 9 Aravind RAMIREZ JR, J V T VISIT 15 MINUTES [facility]OSP[facility] - 9 9 [facility] OUTPATIEN [facility] T [facility] - 9 9 [facility] OUTPATIEN INC T OFFICE 64758 VIERA VIERA OUTPATIEN 9 9 Aravind RAMIREZ JR, J V T VISIT 15 MINUTES OFFICE 17037 VIERA VIERA OUTPATIEN 9 9 Aravind RAMIREZ JR, J V T VISIT 15 MINUTES [facility] - 9 9 [facility] OUTPATIEN INC T OFFICE 35959 VIERA VIERA OUTPATIEN 9 9 Aravind RAMIREZ JR, J V T VISIT 15 MINUTES OFFICE 82394 VIERA VIERA OUTPATIEN 9 9 Aravnid RAMIREZ JR, J V T VISIT 15 MINUTES [facility] - 9 9 [facility] OUTPATIEN INC T OFFICE 42284 VIERA VIERA OUTPATIEN 9 9 Aravind RAMIREZ JR, J V T VISIT 15 MINUTES OFFICE 37315 VIERA VIERA OUTPATIEN 9 9 Aravind RAMIREZ JR, J V T VISIT 15 MINUTES OFFICE 97555 VIERA VIERA OUTPATIEN 9 9 Aravind RAMIREZ JR, J V T VISIT 15 MINUTES EMERGENCY 69642 CHACE MIMS, 8 8 [facility] VISIT ON MODERATE SEVERITY EMERGENCY 57604 [facility] 8 8 [facility] T VISIT LOW/MODER SEVERITY [facility] - 8 8 [facility] OUTPATIEN INC T [facility]OSP[facility] - 8 8 [facility] OUTPATIEN INC T EMERGENCY 33697 [facility] 8 8 [facility] T VISIT MODERATE SEVERITY OFFICE 11980 AYLIN VIERA OUTPATIEN 8 8 Aravind RAMIREZ JR, J V T VISIT 15 MINUTES PERIODIC 99660 AYLIN VIERA PREVENTIV 8 8 Aravind RAMIREZ JR, J V E MED EST PATIENT 12-17YRS OFFICE 98446 Elaine TEIXEIRA 8 8 JEVON Terrazas T VISIT PSC 15 MINUTES HOSPITAL [facility] - 8 8 [facility] OUTPATIEN [facility] T EMERGENCY 47140 [facility] 8 8 [facility] T VISIT LIMITED/M INOR PROB EMERGENCY 06220 VERNE[facility] CERNA, 8 8 [facility] T VISIT PROF SERV LOW/MODER SEVERITY OFFICE 40598 AYLIN VIERA OUTPATIEN 8 8 Aravind RAMIREZ JR, J V T VISIT 15 MINUTES [facility]OSP[facility] - 8 8 [facility] OUTPATIEN INC T OFFICE 61516 AYLIN VIERA OUTPATIEN 8 8 Aravind RAMIREZ JR, J V T VISIT 15 MINUTES
--- NOTE | 2017-07-20 06:40 | RADIOLOGY REPORT PS360 ---
WRIST-3 VIEWS-RT HISTORY: Posttraumatic pain fall ORDERING PHYSICIAN: Adan Alford MD PATIENT AGE: 21 years COMPARISON: None FINDINGS: There is a nondisplaced fracture involving the base of the ulnar styloid process. Otherwise negative. IMPRESSION: Nondisplaced fracture of the ulnar styloid process
== END 2017-07-19 22:25 | disposition home or self-care (01) ==
LOC: ER 21:03
DX: S52.614A Nondisplaced fracture of right ulna styloid process, initial encounter for closed fracture (principal); W01.0XXA Fall on same level from slipping, tripping and stumbling without subsequent striking against object, initial encounter; Y92.414 Local residential or business street as the place of occurrence of the external cause; Z88.0 Allergy status to penicillin; J45.909 Unspecified asthma, uncomplicated